=== PATIENT | female | born 1945 | race Caucasian/White ===

== ENCOUNTER 2018-11-20 17:44 | Emergency (ER) | payer MEDICARE ==
--- NOTE | 2018-11-20 18:25 | Emergency Department Record ---
History of Present Illness - General Chief Complaint: Palpitations Stated Complaint: RACING HEART RATE Time Seen by Provider: 11/20/18 18:19 Source: Patient Mode of Arrival: Wheelchair - History of Present Illness Initial Comments: The patient is here because of a racing heart which began around 5 p.m. today, but also has been doing this on and off for the past few days. She wasjust discharged from [facility] on 11-11-18 and is finishing her last 2 doses of vantin , has finished her zithromax, and is finishing her prednisone taper dose in the morning MD Complaint: "Heart racing" Onset/Timin -: Week(s) Context: Occurred during rest Arrythmia History: Atrial fibrillation Associated Symptoms: Other Treatments Prior to Arrival: Beta-jana - Related Data Home Medications Medication Instructions Recorded Confirmed Last Taken Amlodipine Besylate [Norvasc] 5 mg PO DAILY 11/20/18 11/20/18 Unknown Apixaban [Eliquis] 5 mg PO BID 11/20/18 11/20/18 Unknown Aspirin 81 mg PO DAILY 11/20/18 11/20/18 Unknown Fluticasone Propionate [Flovent 50 mcg IH DAILY 11/20/18 11/20/18 Unknown Diskus] Fluticasone/Salmeterol [Advair Hfa 1 puff IH DAILY 11/20/18 11/20/18 Unknown 115-21 Mcg Inhaler] Furosemide 40 mg PO DAILY 11/20/18 11/20/18 Unknown Losartan Potassium 50 mg PO DAILY 11/20/18 11/20/18 Unknown Metformin HCl 1,000 mg PO BID 11/20/18 11/20/18 Unknown Metoprolol Succinate 100 mg PO DAILY 11/20/18 11/20/18 Unknown Montelukast Sodium [Singulair] 10 mg PO QHS 11/20/18 11/20/18 Unknown Pregabalin [Lyrica] 150 g PO DAILY 11/20/18 11/20/18 Unknown Tiotropium [place] [Spiriva 4 mg IH DAILY 11/20/18 11/20/18 Unknown Respimat] Allergies Allergy/AdvReac Type Severity Reaction Status Date / Time No Known Drug Allergies Allergy Verified 11/20/18 18:06 Travel Screening - Travel/Exposure Within Last 30 Days Have you traveled within the last 30 days?: No Past Medical History - SOCIAL HISTORY Smoking Status: Former smoker Alcohol Use: None Drug Use: None - RESPIRATORY Hx Respiratory Disorders: Yes Hx COPD: Yes - CARDIOVASCULAR Hx Cardio Disorders: Yes Hx Abnormal EKG: Yes Hx Irregular Heartbeat: Yes - NEURO Hx Neuro Disorders: Yes Hx TIA: Yes () - GI Hx GI Disorders: No - Hx Genitourinary Disorders: No - ENDOCRINE Hx Endocrine Disorders: Yes Hx Diabetes: Yes Hx Thyroid Disease: No - MUSCULOSKELETAL Hx Musculoskeletal Disorders: No - PSYCH Hx Psych Problems: No - HEMATOLOGY/ONCOLOGY Hx Hematology/Oncology Disorders: Yes Hx Cancer: Yes (melanoma) Hx Chemotherapy: No Hx Radiation Therapy: No Family Medical History Any Significant Family History?: No Physical Exam - General General Appearance: Alert, Oriented x3, Cooperative, No acute distress, Other ( patient repeatedly denies chest symptoms or SALVADOR, SOB) - Head Head exam: Normal inspection - Eye Eye exam: Normal appearance, PERRL Pupils: Normal accommodation - ENT ENT exam: Normal exam, Mucous membranes moist, Normal external ear exam, Normal orophraynx, TM's normal bilaterally Ear exam: Normal external inspection. negative: External canal tenderness Nasal Exam: Normal inspection. negative: Discharge, Sinus tenderness Mouth exam: Normal external inspection, Tongue normal Teeth exam: Normal inspection. negative: Dental caries Throat exam: Normal inspection. negative: Tonsillar erythema, Tonsillar exudate - Neck Neck exam: Normal inspection, Full ROM. negative: Tenderness - Respiratory Respiratory exam: Normal lung sounds bilaterally. negative: Respiratory distress - Cardiovascular Cardiovascular Exam: Normal rhythm, Normal heart sounds, Tachycardia - GI/Abdominal GI/Abdominal exam: Soft, Normal bowel sounds. negative: Tenderness - Rectal Rectal exam: Deferred - exam: Deferred - Extremities Extremities exam: Normal inspection, Full ROM, Normal capillary refill. negative: Calf tenderness, Pedal edema, Tenderness - Back Back exam: Reports: Normal inspection, Full ROM. Denies: Muscle spasm, Rash noted, Tenderness - Neurological Neurological exam: Alert, CN II-XII intact, Normal gait, Oriented X3, Reflexes normal. negative: Motor sensory deficit - Psychiatric Psychiatric exam: Normal affect, Normal mood - Skin Skin exam: Dry, Intact, Normal color, Warm Course Vital Signs 11/20/18 17:58 Temperature 98.2 F Pulse Rate 142 H Respiratory 14 Rate Blood Pressure 124/81 Pulse Ox 94 L - Reevaluation(s) Reevaluation #1: Patient converted to a flutter rate of 75, with changes anterior and inferior leads. Blood pressure now 98 systolic, patient is feeling better. 11/20/18 19:48 Reevaluation #2: Discussed with [facility] call Dr. Landaverde who accepts patient in transfer. she is already anticoagulated on Eliquis previously. Elevated d dimer noted but renal function prohibits contrast CTA. Dr. Jones cardiology will be consulting. 11/20/18 19:49 Reevaluation #3: 11/20/18 19:53 Patient returned to her T at 140. She continues to not have symptoms of any kind, sitting upright in bed swinging feet off the side of cart, conversive, alert. Medical Decision Making - Management Options MDM Management: Additional Work-up Planned (e.g. ADM/Transfer/OP Study) ( Transfer to [facility]) - Data Complexity MDM Data: Labs Ordered and/or Reviewed, X-Ray Ordered and/or Reviewed (Portable chest: slightly rotated but lung maier clear, slight cardiomegally.), EKG Ordered and/or Reviewed - Lab Data Result diagrams: 11/20/18 17:56 11/20/18 17:56 - EKG Data -: EKG Interpreted by Me (Sinus tachycardia of 141, prolonged QT.) Disposition Forms: Patient Portal Access Quality - Quality Measures Quality Measures: N/A - Blood Pressure Screening Does Patient Have Any of the Following: No Blood Pressure Classification: Pre-Hypertensive BP Reading Systolic Measurement: 124 Diastolic Measurement: 81 Screening for High Blood Pressure: < Normal BP, F/U Not Required > [G8783]
[2018-11-20 18:32] LABS: HEMOGLOBIN 12.8 gm/dl (11.6-16.0); MEAN CELL VOLUME 85.1 fl (81-97); MEAN CORPUSCULAR HEMOGLOBIN 26.6 pg (27-33); MEAN CORPUSCULAR HGB CONC 31.2 g/dl (32-36); MEAN PLATELET VOLUME 10.9 fl (7.4-10.4); PLATELET COUNT 395 K/uL (130-400); RED BLOOD COUNT 4.82 M/uL (3.80-5.40); RED CELL DISTRIBUTION WIDTH 16.5 % (11.5-14.5); WHITE BLOOD COUNT W/O DIFF 13.5 K/uL (4.2-12.2)
[2018-11-20 18:38] LABS: PLATELET ESTIMATE NORMAL (NORMAL)
[2018-11-20 18:42] LABS: BILIRUBIN,TOTAL 0.2 mg/dL (0.2-1.0); CREATININE 1.7 mg/dL (0.5-0.9); TOTAL PROTEIN 7.1 g/dL (6.6-8.7)
[2018-11-20] MEDS: DILTIAZEM 25MG/5ML VIAL IV ONE (18:45)
[2018-11-20] MEDS: ASPIRIN 325 MG TABLET PO ONE (18:45)
[2018-11-20] MEDS: 0.9 % SODIUM CHLORIDE 1,000 ML BAG IV ONE (18:46)
[2018-11-20 18:47] LABS: ALB/GLOB RATIO 1.2 (1.1-1.8); ALBUMIN 3.9 g/dL (4.0-5.0); PARTIAL THROMBOPLASTIN TIME 27.3 SECONDS (24.5-39.1); PROTHROMBIN TIME (PATIENT) 10.2 SECONDS (9.5-12.1)
[2018-11-20] MEDS ORDERED: DILTIAZEM 25MG/5ML VIAL IV ONE (19:30)
[2018-11-20] MEDS: DILTIAZEM HCL 125 MG in 0.9 % SODIUM CHLORIDE 100ML 100 ML IV SCH (20:06)
[2018-11-20 20:30] LABS: URINE APPEARANCE CLEAR; URINE BILIRUBIN NEGATIVE (NEGATIVE); URINE BLOOD NEGATIVE (NEGATIVE); URINE COLOR YELLOW; URINE KETONE NEGATIVE (NEGATIVE); URINE LEUKOCYTE ESTERASE TRACE (NEGATIVE); URINE NITRITE NEGATIVE (NEGATIVE); URINE PROTEIN NEGATIVE (NEGATIVE); URINE UROBILINOGEN 0.2 E.U./dL (0.20 - 1.00)
[2018-11-20 20:32] LABS: URINE GLUCOSE (UA) >=1000 mg/dL (NEGATIVE)
[2018-11-20 20:38] LABS: URINE BACTERIA FEW; URINE EPITHELIAL CELLS 0 - 2 (FEW); URINE RBC 0 - 2 (NONE SEEN); URINE WBC 0 - 2 (0-2/hpf)
--- NOTE | 2018-11-20 21:20 | RADIOLOGY REPORT ---
EXAM: CHEST 1 VIEW HISTORY: TACHYCARDIA, ELEVATED TROPONIN. TECHNIQUE: Portable chest. FINDINGS: Previous median sternotomy and CABG. There is mild cardiomegaly. No clear pulmonary vascular congestion. No focal consolidation or pleural effusion. IMPRESSION: MILD ENLARGEMENT OF THE CARDIOMEDIASTINAL SILHOUETTE. JOB NUMBER: [id number] MTDD
== END 2018-11-20 20:33 | disposition short-term general hospital (02) ==
LOC: ER 17:44
DX: I47.1 Supraventricular tachycardia (principal); R79.89 Other specified abnormal findings of blood chemistry; E11.9 Type 2 diabetes mellitus without complications; J44.9 Chronic obstructive pulmonary disease, unspecified; Z79.84 Long term (current) use of oral hypoglycemic drugs; Z87.891 Personal history of nicotine dependence; Z79.01 Long term (current) use of anticoagulants; Z86.73 Personal history of transient ischemic attack (TIA), and cerebral infarction without residual deficits
CPT/HCPCS: 71045; 80053; 81001; 83605; 83880; 84484; 85027; 85379; 85610; 85730; 93005; 93010; 96365; 96375; 99285

== ENCOUNTER 2019-02-01 20:25 | Inpatient (IN) | payer MEDICARE ==
[2019-02-01] MEDS ORDERED: IPRATROPIUM/ALBUTEROL (0.5MG/3MG) NEB INH ONE (20:29)
--- NOTE | 2019-02-01 20:34 | Emergency Department Record ---
History of Present Illness - General Chief Complaint: Shortness of breath Stated Complaint: SOB Time Seen by Provider: 02/01/19 20:29 Source: Patient Mode of Arrival: Wheelchair Limitations: No limitations - History of Present Illness Initial Comments: 73 yo female presents to ED for evaluation of SALVADOR and a "rattlely cough for 2 weeks". Patient reports a history of COPD, has been using her inhaler at home. Patient reports similar symptoms with pneumonia in October. Patient also reports that she is 2 weeks post-op from knee surgery, denies chest pain or discomfort symptoms, denies calf swelling or pain, and denies history of DVT/PE. MD Complaint: Shortness of breath Onset/Timin -: Week(s) Consistency: Constant Improves With: Bronchodilators Worsens With: Exertion Known History Of: COPD, Recurrent pneumonia Associated Symptoms: Denies other symptoms Treatments Prior to Arrival: Bronchodilator - Related Data Home Oxygen Therapy: No Allergies Allergy/AdvReac Type Severity Reaction Status Date / Time No Known Drug Allergies Allergy Verified 11/20/18 18:06 Review of Systems Constitutional: Denies: Chills, Fever, Malaise, Night sweats Eyes: Denies: Eye discharge, Eye pain ENT: Denies: Congestion, Ear pain, Epistaxis Respiratory: Reports: Cough, Dyspnea, Wheezes Cardiovascular: Reports: Dyspnea on exertion. Denies: Chest pain Endocrine: Denies: Fatigue, Heat or cold intolerance Gastrointestinal: Denies: Abdominal pain, Nausea, Vomiting Genitourinary: Denies: Incontinence, Retention Musculoskeletal: Denies: Arthralgia, Back pain Skin: Denies: Bruising, Change in color Neurological: Denies: Abnormal gait, Confusion, Headache, Seizure Psychiatric: Denies: Anxiety Hematological/Lymphatic: Denies: Anemia, Blood Clots Past Medical History - SOCIAL HISTORY Smoking Status: Former smoker Drug Use: None - RESPIRATORY Hx Respiratory Disorders: Yes Hx COPD: Yes - CARDIOVASCULAR Hx Cardio Disorders: Yes Hx Abnormal EKG: Yes Hx Irregular Heartbeat: Yes - NEURO Hx Neuro Disorders: Yes Hx TIA: Yes () - GI Hx GI Disorders: No - Hx Genitourinary Disorders: No - ENDOCRINE Hx Endocrine Disorders: Yes Hx Diabetes: Yes Hx Thyroid Disease: No - MUSCULOSKELETAL Hx Musculoskeletal Disorders: No - PSYCH Hx Psych Problems: No - HEMATOLOGY/ONCOLOGY Hx Hematology/Oncology Disorders: Yes Hx Cancer: Yes (melanoma) Hx Chemotherapy: No Hx Radiation Therapy: No Physical Exam - General General Appearance: Alert, Oriented x3, Cooperative, Moderate distress, Other ( Pursed breathing on examination, tachypnic, hypoxic on examination) Limitations: No limitations - Head Head exam: Atraumatic, Normocephalic, Normal inspection Head exam detail: negative: Abrasion, Contusion, Drew's sign, General tenderness, Hematoma, Laceration - Eye Eye exam: Normal appearance. negative: Conjunctival injection, Periorbital swelling, Periorbital tenderness, Scleral icterus - ENT Ear exam: negative: Auricular hematoma, Auricular trauma Nasal Exam: negative: Active bleeding, Discharge, Dried blood, Foreign body Mouth exam: negative: Drooling, Laceration, Muffled voice, Tongue elevation - Neck Neck exam: Normal inspection. negative: Meningismus, Tenderness - Respiratory Respiratory exam: Respiratory distress, Other (Crackles RUL, RLL on examination. ). negative: Rales, Rhonchi - Cardiovascular Cardiovascular Exam: Regular rate, Normal rhythm, Normal heart sounds - GI/Abdominal GI/Abdominal exam: Soft. negative: Rebound, Rigid, Tenderness - Rectal Rectal exam: Deferred - exam: Deferred - Extremities Extremities exam: Normal inspection. negative: Pedal edema, Tenderness - Back Back exam: Denies: CVA tenderness (R), CVA tenderness (L) - Neurological Neurological exam: Alert, Oriented X3. negative: Motor sensory deficit - Psychiatric Psychiatric exam: Normal affect, Normal mood - Skin Skin exam: Normal color. negative: Abrasion Type of lesion: negative: abrasion Course - Reevaluation(s) Reevaluation #1: 02/01/19 20:37 EKG: NSR 93 Normal axis, normal intervals Borderline ST depression I, AVL, V4-V6 Reevaluation #2: 02/01/19 21:02 Laboratory studies were reviewed: WBC 23.3 Hgb 10.5/HCT 34 GFR 36 (at baseline for the patient) Troponin 0.012 (slightly above 0.010 cutoff). Patient was taken for CXR at this time. Reevaluation #3: 02/01/19 21:10 CXR was reviewed: Appears c/w RML infiltrate Zosyn and Levaquin was ordered for HCAP, will admit for further evaluation. Given the patient's symptoms, elevated WBC, and examination, etiology appears c/ w HCAP. CTA to exclude PE does not appear appropriate given these factors and the patient's GFR. Patient verbalizes understanding and is agreement with the plan of care to treat for HCAP and not perform CTA. Will admit for further evaluation and treatment. Reevaluation #4: 02/01/19 21:18 Case was discussed with Fanta Bettencourt [employer], will accept admission and is in agreement with not pursuing PE/DVT given the patient's CXR, elevated WBC, and clinical examination. Will admit for treatment of HCAP as discussed. Medical Decision Making - Lab Data Result diagrams: 02/01/19 20:30 02/01/19 20:30 Disposition Disposition: Admit Clinical Impression: HCAP (healthcare-associated pneumonia), Hypoxia COPD (chronic obstructive pulmonary disease) Qualifiers: COPD type: unspecified COPD Qualified Code(s): J44.9 - Chronic obstructive pulmonary disease, unspecified Disposition: Still a Patient at [facility] Decision to Admit: Admit from ER Decision to Admit Date: 02/01/19 Decision to Admit Time: 21:13 Condition: (2) Stable Forms: Patient Portal Access Time of Disposition: 21:13 Quality - Quality Measures Quality Measures: N/A - Blood Pressure Screening Does Patient Have Any of the Following: Active Dx of HTN Blood Pressure Classification: Hypertensive Reading Systolic Measurement: 159 Diastolic Measurement: 70 Screening for High Blood Pressure: Patient Exclusion, Hx of HTN [G9744]
[2019-02-01 20:40] LABS: BASO % 0.1 % (0-6); EOS % 0.3 % (0-6); HEMATOCRIT 34.5 % (35.0-47.0); HEMOGLOBIN 10.5 gm/dl (11.6-16.0); MEAN CELL VOLUME 86.5 fl (81-97); MEAN CORPUSCULAR HEMOGLOBIN 26.3 pg (27-33); MEAN CORPUSCULAR HGB CONC 30.4 g/dl (32-36); MEAN PLATELET VOLUME 9.8 fl (7.4-10.4); MONO % 6.1 % (0-9); PLATELET COUNT 317 K/uL (130-400); RED BLOOD COUNT 3.99 M/uL (3.80-5.40)
[2019-02-01 20:48] LABS: WHITE BLOOD COUNT W/O DIFF 23.3 K/uL (4.2-12.2)
[2019-02-01 20:50] LABS: BILIRUBIN,TOTAL 0.4 mg/dL (0.2-1.0); CREATININE 1.5 mg/dL (0.5-0.9)
[2019-02-01 20:51] LABS: TOTAL PROTEIN 7.4 g/dL (6.6-8.7)
[2019-02-01 20:56] LABS: ALBUMIN 3.7 g/dL (4.0-5.0)
[2019-02-01 21:05] LABS: ANISOCYTOSIS 1+; PLATELET ESTIMATE NORMAL (NORMAL)
[2019-02-01] MEDS ORDERED: PIPERACILLIN SODIUM/TAZOBACTAM 4.5 GM in 0.9 % SODIUM CHLORIDE 100ML 100 ML IVPB ONE (21:09)
[2019-02-01] MEDS ORDERED: LEVOFLOXACIN 250MG IVPB 250 MG/50 ML BAG IVPB ONE (21:09)
[2019-02-01] MEDS ORDERED: LEVOFLOXACIN/D5W 750 MG/150 ML BAG IVPB SCH (23:13)
[2019-02-01] MEDS ORDERED: PIPERACILLIN SODIUM/TAZOBACTAM 4.5 GM in 0.9 % SODIUM CHLORIDE 100ML 100 ML IVPB SCH (23:13)
[2019-02-01] MEDS ORDERED: 0.9 % SODIUM CHLORIDE 1000ML 1,000 ML IV PRN (23:13)
[2019-02-01] MEDS ORDERED: ALBUTEROL SULFATE (0.083%) 2.5 MG/3 ML NEB INH PRN (23:13)
[2019-02-01] MEDS ORDERED: Non-Formulary MISC (Metformin Hcl [Metformin Hcl] 1,000 MG) PO SCH (23:13)
[2019-02-01] MEDS: IPRATROPIUM/ALBUTEROL (0.5MG/3MG) NEB INH SCH (23:35)
[2019-02-01] MEDS: ACETAMINOPHEN 500 MG TABLET PO PRN (23:49)
[2019-02-01] MEDS: MONTELUKAST SODIUM 10MG TABLET PO SCH (23:50)
[2019-02-01] MEDS: APIXABAN 5MG TABLET PO SCH (23:50)
[2019-02-02] MEDS: PREGABALIN 50 MG CAPSULE PO SCH ×3 (00:53→21:31)
[2019-02-02] MEDS ORDERED: LEVOFLOXACIN 500MG IVPB 500 MG/100 ML BAG IVPB SCH (02:00)
[2019-02-02] MEDS: PIPERACILLIN SODIUM/TAZOBACTAM 3.375 GM in 0.9 % SODIUM CHLORIDE 100ML 100 ML IVPB SCH ×4 (04:25→21:16)
[2019-02-02] MEDS: IPRATROPIUM/ALBUTEROL (0.5MG/3MG) NEB INH SCH ×2 (06:16→09:46)
--- NOTE | 2019-02-02 07:32 | RADIOLOGY REPORT ---
EXAM: CHEST, TWO VIEWS HISTORY: DIFFICULTY IN BREATHING, SHORTNESS OF BREATH FOR TWO WEEKS, PRODUCTIVE COUGH. TECHNIQUE: PA and lateral views of the chest were obtained. Comparison: Portable AP chest 11/20/18. FINDINGS: Postop sternotomy as before. Stable cardiomegaly, however, there is new infiltrate in the right mid lung predominantly in the inferior aspect of the right upper lobe, but also in the adjacent right middle lobe. There is also a small amount of new infiltrate in the left mid lung laterally. This likely represents bilateral pneumonitis, right greater than left. Follow-up films suggested to demonstrate clearing. Slight blunting of the posterior costophrenic angles probably representing quite small basilar effusions bilaterally. No pneumothorax evident. IMPRESSION: 1. CARDIOMEGALY WITH POSTOP STERNOTOMY BEFORE. 2. NEW BILATERAL PULMONARY INFILTRATE RIGHT GREATER THAN LEFT PROBABLY REPRESENTING BILATERAL PNEUMONITIS. THERE MAY BE SMALL ASSOCIATED BIBASILAR EFFUSIONS WELL. FOLLOW-UP FILMS SUGGESTED TO DEMONSTRATE CLEARING. J[facility] NUMBER: [id number] [facility]
[2019-02-02] MEDS: ACETAMINOPHEN 500 MG TABLET PO PRN (07:39)
[2019-02-02] MEDS ORDERED: METFORMIN 500 MG TABLET PO SCH ×2 (08:00→10:00)
[2019-02-02] MEDS ORDERED: 0.9 % SODIUM CHLORIDE 1000ML 1,000 ML IV PRN ×2 (08:10→16:52)
[2019-02-02] MEDS: LEVEMIR FLEXTOUCH 100 UNIT/ML INSULIN PEN SQ SCH ×2 (08:25→09:33)
[2019-02-02 08:29] LABS: HEMATOCRIT 30.5 % (35.0-47.0); HEMOGLOBIN 9.4 gm/dl (11.6-16.0); MEAN CELL VOLUME 87.4 fl (81-97); MEAN CORPUSCULAR HEMOGLOBIN 26.9 pg (27-33); MEAN CORPUSCULAR HGB CONC 30.8 g/dl (32-36); MEAN PLATELET VOLUME 9.9 fl (7.4-10.4); PLATELET COUNT 270 K/uL (130-400); RED BLOOD COUNT 3.49 M/uL (3.80-5.40)
[2019-02-02 09:10] LABS: BILIRUBIN,TOTAL 0.6 mg/dL (0.2-1.0); CREATININE 1.6 mg/dL (0.5-0.9)
[2019-02-02 09:11] LABS: TOTAL PROTEIN 6.6 g/dL (6.6-8.7)
[2019-02-02 09:15] LABS: ALB/GLOB RATIO 0.9 (1.1-1.8); ALBUMIN 3.1 g/dL (4.0-5.0)
[2019-02-02] MEDS: FUROSEMIDE 40 MG TABLET PO SCH (09:32)
[2019-02-02] MEDS: METOPROLOL SUCC 50 MG TABLET PO SCH (09:32)
[2019-02-02] MEDS: ASPIRIN 81 MG CHEWABLE TABLET PO SCH (09:32)
[2019-02-02] MEDS: APIXABAN 5MG TABLET PO SCH ×2 (09:32→21:32)
[2019-02-02] MEDS: BREO (FLUTICASONE/VILANTEROL) 200MCG/25MCG INHALER INH SCH (09:46)
[2019-02-02] MEDS: PATIENT OWN MED: SPIRIVA RESPIMAT INH SCH (09:46)
[2019-02-02] MEDS: AMIODARONE HCL 200 MG TABLET PO SCH (12:55)
[2019-02-02] MEDS: FLUTICASONE PROPIONATE 50MCG NASAL 16 GM BTL SCH ×2 (12:55→23:20)
--- NOTE | 2019-02-02 16:51 | History & Physical ---
History of Present Illness - Date of Service Date of Service for History & Physical: 02/02/19 - History of Present Illness Admitting Diagnosis: HCAP. Hypoxia. COPD History of Present Illness: Marii Landry is a 73 y.o. F who presented to the [facility] ED for SALVADOR and a "rattley cough x 2 weeks". Had similar symptoms in October and was treated for PNA. Has inhalers at home d/t COPD and has been using. Did undergo a left knee surgery at [facility] 2 weeks ago. Has been anticoagulated with Eliquis and denied calf swelling, leg pain, chest pain or hx of DVT/PE. While in the ED, Dr. Chacon and pt discussed low likelihood of PE and higher likelihood of PNA causing increased SALVADOR. Additionally, d/t Stage 4 CKD and pt not wanting to transfer to higher level of care to r/o PE, it was agreed upon that pt would remain at [facility] and be treated for clinical s/sx of HCAP. PMHx: COPD, CKD 4, DM II, heart disease ED Course O2 sat 72% on arrival EKG: NSR, rate 93, borderline ST depression I, AVL, V4-V6 Labs: WBC 23.3, Hgb/HCT 10.5/34, GFR 36 (baseline) CXR: New bilateral infiltrates, right side greater than left, maybe small bibasilar effusion 02/02/19 1515: Sitting up in chair, conversing with ease. Alert and appropriate. Reports that she feels much less SOB than the previous evening. Only having pain in left knee d/t recent knee surgery. States that her baseline O2 sat is 89-92% on RA. Does not have home oxygen. Currently is wearing 3L per NC and O2 sat is 93% at rest. Has only had to use nebulizer once. Doesn't feel like she has anything to hack up. Cough has improved. Reports that her "Metformin is always stopped when in the hospital d/t my kidney function." States that she has been in CKD 4 x 4-5 years and that GFR stays stable, even with Metformin use. Concerned about falling behind with progress on her left knee d/t recent surgery. Motivated to get up and move when able to breathe. Travel Screening - Travel/Exposure Within Last 30 Days Have you traveled within the last 30 days?: No - Travel/Exposure Within Last Year Have you traveled outside the [place] in the last year?: No - Additonal Travel Details Have you been exposed to anyone with a communicable illness?: No - Travel Symptoms Symptom Screening: Weakness, Fatigue, Lack of Appetite Review of Systems Reviewed: No additional complaints except as noted below Constitutional: Denies: Chills, Fever, Malaise, Night sweats Eyes: Denies: Eye discharge, Eye pain ENT: Denies: Congestion, Ear pain, Epistaxis Respiratory: Reports: Cough, Dyspnea, Wheezes Cardiovascular: Reports: Dyspnea on exertion. Denies: Chest pain, Edema Endocrine: Denies: Fatigue, Heat or cold intolerance Gastrointestinal: Denies: Abdominal pain, Nausea, Vomiting Genitourinary: Denies: Incontinence, Retention Musculoskeletal: Denies: Arthralgia, Back pain Skin: Denies: Bruising, Change in color Neurological: Denies: Abnormal gait, Confusion, Headache, Seizure Psychiatric: Denies: Anxiety Hematological/Lymphatic: Denies: Anemia, Blood Clots Past Medical History - SOCIAL HISTORY Smoking Status: Former smoker Alcohol Use: None - RESPIRATORY Hx Respiratory Disorders: Yes Hx COPD: Yes Hx Sleep Apnea: Yes Hx of CPAP: Yes (USES CPAP AT HOME) - CARDIOVASCULAR Hx Cardio Disorders: Yes Hx Abnormal EKG: Yes Hx Irregular Heartbeat: Yes (ON AMIODARONE) - NEURO Hx Neuro Disorders: Yes Hx TIA: Yes () - GI Hx GI Disorders: No - Hx Genitourinary Disorders: No - ENDOCRINE Hx Endocrine Disorders: Yes Hx Diabetes: Yes (INSULIN DEPENDENT) Hx Thyroid Disease: No - MUSCULOSKELETAL Hx Musculoskeletal Disorders: Yes Hx Arthritis: Yes - PSYCH Hx Psych Problems: No - HEMATOLOGY/ONCOLOGY Hx Hematology/Oncology Disorders: Yes Hx Cancer: Yes (melanoma) Hx Chemotherapy: No Hx Radiation Therapy: No Family Medical History Any Significant Family History?: Yes Hx Heart Disease: Father Hx HTN: Father H&P Meds/Allergies - Allergies Allergies: Allergies Allergy/AdvReac Type Severity Reaction Status Date / Time No Known Drug Allergies Allergy Verified 11/20/18 18:06 - Home Medications Home Medications Medication Instructions Recorded Confirmed Last Taken Acetaminophen [Tylenol Extra 500 mg PO BID PRN 02/01/19 02/01/19 Unknown Strength] Insulin Glargine,Hum.rec.anlog 55 units SQ QAM 03/02/01/19 02/01/19 07:00 [Lantus Solostar] 55 UNITS Amiodarone HCl [Pacerone] 200 mg PO QAM 02/02/19 02/02/19 02/01/19 07:00 200 MG Lovastatin 40 mg PO QHS 02/02/19 02/02/19 01/31/19 23:30 40 MG - Active Medications Active Medications: Current Medications Acetaminophen (Tylenol 500mg Tab) 1,000 mg PO Q6H PRN PRN Reason: PAIN - MILD(1-4)/FEVER Last Admin: 02/02/19 07:39 Dose: 1,000 mg Albuterol Sulfate (Albuterol Sulfate) 2.5 mg INH RESP.Q1H PRN PRN Reason: DIFFICULTY IN BREATHING Amiodarone HCl (Pacerone) 200 mg PO DAILY [facility] Last Admin: 02/02/19 12:55 Dose: 200 mg Apixaban (Eliquis) 5 mg PO BID [facility] Last Admin: 02/02/19 09:32 Dose: 5 mg Aspirin (Aspirin Chewable) 81 mg PO DAILY [facility] Last Admin: 02/02/19 09:32 Dose: 81 mg Fluticasone Propionate (Flonase) 1 spray NA DAILY [facility] Last Admin: 02/02/19 12:55 Dose: Not Given Furosemide (Lasix) 40 mg PO DAILY [facility] Last Admin: 02/02/19 09:32 Dose: 40 mg Piperacillin Sod/Tazobactam (Sod 3.375 gm/ Sodium Chloride) 100 mls @ 200 mls/ hr IVPB Q6H [facility] Last Infusion: 02/02/19 16:08 Dose: Infused Levofloxacin/Dextrose (Levaquin 750mg Ivpb) 750 mg in 150 mls @ 125 mls/hr IVPB Q48H [facility] Stop: 02/09/19 01:01 Sodium Chloride () 1,000 mls @ 42 mls/hr IV .[id number] PRN PRN Reason: LARGE VOLUME IV Insulin Detemir (Levemir Flextouch) 55 unit SQ QAM [facility] Last Admin: 02/02/19 09:33 Dose: Not Given Metformin HCl (Glucophage Ir) 1,000 mg PO BID [facility] Last Admin: 02/02/19 11:07 Dose: Not Given Metoprolol Succinate (Toprol Xl) 100 mg PO DAILY [facility] Last Admin: 02/02/19 09:32 Dose: 100 mg Montelukast Sodium (Singulair) 10 mg PO QHS [facility] Last Admin: 02/01/19 23:50 Dose: 10 mg Patient Own Med: (Spiriva Respimat) 2 each INH DAILY [facility] Last Admin: 02/02/19 09:46 Dose: 2 each Pregabalin (Lyrica) 150 mg PO BID [facility] Last Admin: 02/02/19 09:31 Dose: 150 mg Simvastatin (Zocor) 20 mg PO QHS [facility] Physical Exam - Vital Signs Vital Signs: Vital Signs - Last 24 Hrs Temp Pulse Pulse Pulse Resp BP BP 02/02/19 16:00 99.0 F 79 16 184/65 02/02/19 11:53 97.5 F L 73 16 128/48 02/02/19 09:56 02/02/19 09:54 82 18 02/02/19 08:00 97.3 F L 96 H 16 130/49 02/02/19 06:15 02/02/19 05:00 97.7 F 68 20 111/43 02/01/19 23:35 02/01/19 23:15 98.6 F 88 20 153/61 02/01/19 22:56 16 142/59 02/01/19 21:40 94 H 18 138/50 02/01/19 20:41 89 18 02/01/19 20:27 98.7 F 93 H 20 159/70 Pulse Ox 02/02/19 16:00 96 02/02/19 11:53 93 L 02/02/19 09:56 92 L 02/02/19 09:54 92 L 02/02/19 08:00 91 L 02/02/19 06:15 98 02/02/19 05:00 91 L 02/01/19 23:35 94 L 02/01/19 23:15 93 L 02/01/19 22:56 95 02/01/19 21:40 95 02/01/19 20:41 96 02/01/19 20:27 91 L - General General Appearance: Alert, Oriented x3, Cooperative, No acute distress, Other ( able to communicate in multiple word sentences with ease) Limitations: No limitations - Head Head exam: Atraumatic, Normocephalic, Normal inspection Head exam detail: negative: Abrasion, Contusion, Drew's sign, General tenderness, Hematoma, Laceration - Eye Eye exam: Normal appearance. negative: Conjunctival injection, Periorbital swelling, Periorbital tenderness, Scleral icterus - ENT Ear exam: negative: Auricular hematoma, Auricular trauma Nasal Exam: negative: Active bleeding, Discharge, Dried blood, Foreign body Mouth exam: negative: Drooling, Laceration, Muffled voice, Tongue elevation - Neck Neck exam: Normal inspection. negative: Meningismus, Tenderness - Respiratory Respiratory exam: Decreased breath sounds. negative: Rales, Rhonchi - Cardiovascular Cardiovascular Exam: Regular rate, Normal rhythm, Normal heart sounds - GI/Abdominal GI/Abdominal exam: Soft. negative: Rebound, Rigid, Tenderness - Rectal Rectal exam: Deferred - exam: Deferred - Extremities Extremities exam: Normal inspection, Pedal edema (left side which is surgical leg). negative: Tenderness - Back Back exam: Denies: CVA tenderness (R), CVA tenderness (L) - Neurological Neurological exam: Alert, Oriented X3. negative: Motor sensory deficit - Psychiatric Psychiatric exam: Normal affect, Normal mood - Skin Skin exam: Normal color, Other (left knee incision well-approximated, no s/sx of infection). negative: Abrasion Type of lesion: negative: abrasion Results - Labs Result Diagrams: 02/02/19 08:25 02/02/19 08:22 Labs Last 24 Hours: Laboratory Results - last 24 hr 02/01/19 02/01/19 02/02/19 20:30 20:30 08:22 WBC 23.3 H* Corrected WBC RBC 3.99 Hgb 10.5 L Hct 34.5 L MCV 86.5 MCH 26.3 L MCHC 30.4 L RDW 15.0 H Plt Count 317 MPV 9.8 Gran % Neutrophils % 85.0 H Band Neutrophils % 3.0 Lymphocytes % 4.0 L Monocytes % 6.1 Eosinophils % 0.3 Basophils % 0.1 Lymphocytes 6.0 L Monocytes 5.0 Basophils Metamyelocytes Myelocytes Promyelocytes Nucleated RBCs Differential Comment Hypersegmented Polys Plasma Cells Other Cell Type Toxic Granulation Dohle Bodies Justina Rods Platelet Estimate Normal RBC Morphology Polychromasia Hypochromasia Poikilocytosis Basophilic Stippling Anisocytosis 1+ Microcytosis Macrocytosis Spherocytes Sickle Cells Target Cells Tear Drop Cells Ovalocytes Stomatocytes Helmet Cells Martinez-S[place] Bodies [place] Rings Zak Cells Acanthocytes (Spur) Rouleaux Schistocytes Morphology Comment Eosinophil Count 1.0 Sodium 138 137 Potassium 4.8 H 4.7 H Chloride 99 100 Carbon Dioxide 25.0 25.0 Anion Gap 14.0 12.0 BUN 29 H 27 H Creatinine 1.5 H 1.6 H Estimated GFR 36 33 POC Glucose Random Glucose 140 H 114 H Calcium 9.1 8.8 Total Bilirubin 0.40 0.60 AST 16 13 ALT 13 12 Alkaline Phosphatase 132 H 111 H Troponin T 0.012 H Total Protein 7.4 6.6 Albumin 3.7 L 3.1 L Globulin 3.7 3.5 Albumin/Globulin Ratio 1.0 L 0.9 L Procalcitonin 0.197 02/02/19 02/02/19 02/02/19 08:25 08:25 11:52 WBC 17.0 H Cancelled Corrected WBC Cancelled RBC 3.49 L Cancelled Hgb 9.4 L Cancelled Hct 30.5 L Cancelled MCV 87.4 Cancelled MCH 26.9 L Cancelled MCHC 30.8 L Cancelled RDW 15.0 H Cancelled Plt Count 270 Cancelled MPV 9.9 Cancelled Gran % Cancelled Neutrophils % 91.0 H Cancelled Band Neutrophils % Cancelled Lymphocytes % Cancelled Monocytes % Cancelled Eosinophils % Not Reportable Cancelled Basophils % Not Reportable Cancelled Lymphocytes 6.0 L Cancelled Monocytes 2.0 Cancelled Basophils Cancelled Metamyelocytes Cancelled Myelocytes Cancelled Promyelocytes Cancelled Nucleated RBCs Cancelled Differential Comment Cancelled Hypersegmented Polys Cancelled Plasma Cells Cancelled Other Cell Type Cancelled Toxic Granulation Cancelled Dohle Bodies Cancelled Justina Rods Cancelled Platelet Estimate Cancelled RBC Morphology Cancelled Polychromasia Cancelled Hypochromasia Cancelled Poikilocytosis Cancelled Basophilic Stippling Cancelled Anisocytosis Cancelled Microcytosis Cancelled Macrocytosis Cancelled Spherocytes Cancelled Sickle Cells Cancelled Target Cells Cancelled Tear Drop Cells Cancelled Ovalocytes Cancelled Stomatocytes Cancelled Helmet Cells Cancelled Martinez-S[place]omb Bodies Cancelled [place] Rings Cancelled [place] Cells Cancelled Acanthocytes (Spur) Cancelled Rouleaux Cancelled Schistocytes Cancelled Morphology Comment Cancelled Eosinophil Count Cancelled Sodium Potassium Chloride Carbon Dioxide Anion Gap BUN Creatinine Estimated GFR POC Glucose 113 H Random Glucose Calcium Total Bilirubin AST ALT Alkaline Phosphatase Troponin T Total Protein Albumin Globulin Albumin/Globulin Ratio Procalcitonin VTE H&P Assessment - Risk for VTE Risk for VTE: Yes Risk Level: High Risk Assessment Date: 02/02/19 Risk Assessment Time: 15:00 VTE Orders Placed or Will Be Placed: Yes Plan - Inpatient Certification Inpatient Certification: Admit to inpatient care: Based on my medical assessment, after consideration of patient's risk factors (age, co-morbidities and patient presenting symptoms and acuity), I expect that this patient will remain in the hospital greater than or equal to two midnights and that the services needed warrant inpatient care because: Patient Risk Factors: [] Estimated length of stay: [] The patient may reasonably be expected to be discharged or transferred to a hospital within 96 hours after admission to [facility]. Services needed: [] Post hospital care (if known): [] I certify that my determination is in accordance with my understanding of Medicare requirements for reasonable and necessary inpatient services. - Detailed Diagnosis and Plan (1) HCAP (healthcare-associated pneumonia) Current Visit: Yes Status: Acute Base Code: J18.9 - PNEUMONIA, UNSPECIFIED ORGANISM Comment: 02/02/19 -CXR: New bilateral infiltrates, R > L, possible small bibasilar effusion -WBC 23.3, decreased to 17 -O2 to maintain sats 90-92% -Continue IV Zosyn and IV Levaquin (with renal dosing) -Albuterol nebs PRN -No steroids given d/t no wheezing and DM II (2) COPD (chronic obstructive pulmonary disease) Current Visit: Yes Status: Acute Qualifiers: COPD type: unspecified COPD Qualified Code(s): J44.9 - Chronic obstructive pulmonary disease, unspecified Base Code: J44.9 - CHRONIC OBSTRUCTIVE PULMONARY DISEASE, UNSPECIFIED Comment : 02/02/19 -Albuterol nebs PRN -Breo Ellipta inhaler -O2 to maintain sats 90-92% (3) Full code status Current Visit: Yes Status: Acute Base Code: Z78.9 - OTHER SPECIFIED HEALTH STATUS Comment: 02/02/19 -Full code this admission (4) DVT (deep venous thrombosis) Current Visit: Yes Status: Acute Base Code: I82.409 - ACUTE EMBOLISM AND THOMBOS UNSP DEEP VN UNSP LOWER EXTREMITY Comment: 02/02/19 -Continue home dose of Eliquis 5mg PO BID -Encourage ambulation (5) Diabetes mellitus, type II, insulin dependent Current Visit: Yes Status: Acute Base Code: E11.9 - TYPE 2 DIABETES MELLITUS WITHOUT COMPLICATIONS; Z79.4 - REPATCHER (CURRENT) USE OF INSULIN Comment: 02/02/19 -Hold Metformin while in hospital d/t other nephrotoxic agents (GFR 33) -Continue Levemir 55 units q. AM (6) Hypoxia Current Visit: Yes Status: Acute Base Code: R09.02 - HYPOXEMIA Comment: -O2 sat 72% RA on arrival to ED -Currently 93% on 3L per NC -Staff to wean off of O2 for discharge -Continue IV atbx for HCAP (recent hospitalization) (7) H/O left knee surgery Current Visit: Yes Status: Acute Base Code: Z98.890 - OTHER SPECIFIED POSTPROCEDURAL STATES Comment: 02/02/19 -S/p left knee surgery approximately 2 weeks ago -Concerned about falling behind on PT/OT d/t hospitalization -Ortho surgeon wrote script for outpatient PT/OT and unable to start until (8) CKD (chronic kidney disease), stage IV Current Visit: Yes Status: Acute Base Code: N18.4 - CHRONIC KIDNEY DISEASE, STAGE 4 (SEVERE) Comment: 02/02/19 -Hold Metformin while hospitalized, recommended discussing stopping this medication with PCP -IV Zosyn and IV Levaquin with renal dosing -IVF reduced to 15ml/hr
[2019-02-02] MEDS ORDERED: POLYETHYLENE GLY 17 GM PACKET PO ONE (16:53)
[2019-02-02] MEDS: MONTELUKAST SODIUM 10MG TABLET PO SCH (21:35)
[2019-02-02] MEDS ORDERED: SIMVASTATIN 20 MG TABLET PO SCH (22:00)
[2019-02-03] MEDS: PIPERACILLIN SODIUM/TAZOBACTAM 3.375 GM in 0.9 % SODIUM CHLORIDE 100ML 100 ML IVPB SCH ×2 (03:50→08:47)
[2019-02-03] MEDS: ACETAMINOPHEN 500 MG TABLET PO PRN (08:35)
[2019-02-03] MEDS: AMIODARONE HCL 200 MG TABLET PO SCH ×2 (08:36→09:16)
[2019-02-03] MEDS: METOPROLOL SUCC 50 MG TABLET PO SCH ×2 (08:36→09:16)
[2019-02-03] MEDS: FUROSEMIDE 40 MG TABLET PO SCH ×2 (08:37→09:15)
[2019-02-03] MEDS: PREGABALIN 50 MG CAPSULE PO SCH ×2 (08:37→09:16)
[2019-02-03] MEDS: ASPIRIN 81 MG CHEWABLE TABLET PO SCH ×2 (08:37→09:15)
[2019-02-03] MEDS: LEVEMIR FLEXTOUCH 100 UNIT/ML INSULIN PEN SQ SCH ×2 (08:38→09:16)
[2019-02-03] MEDS: FLUTICASONE PROPIONATE 50MCG NASAL 16 GM BTL SCH (09:15)
[2019-02-03] MEDS: APIXABAN 5MG TABLET PO SCH (09:15)
[2019-02-03] MEDS: BREO (FLUTICASONE/VILANTEROL) 200MCG/25MCG INHALER INH SCH (10:02)
[2019-02-03] MEDS: PATIENT OWN MED: SPIRIVA RESPIMAT INH SCH (10:03)
--- NOTE | 2019-02-03 11:35 | Discharge Summary ---
Providers Discharge Summary Date: 02/03/19 Date of admission: 02/01/19 22:31 Attending physician: PHILLY URIZ Primary care physician: STEPH ROSALES M.D. Physical Exam - Vital Signs Vital Signs: Vital Signs - Last 24 Hrs Temp Pulse Pulse Resp BP Pulse Ox 02/03/19 10:08 81 18 94 L 02/03/19 09:00 16 02/03/19 08:00 97.9 F 75 17 126/52 92 L 02/03/19 05:00 98.0 F 79 22 122/40 96 02/03/19 04:08 75 20 97 02/03/19 00:00 97.8 F 74 22 131/52 95 02/02/19 22:25 83 95 02/02/19 20:00 98.4 F 87 22 185/59 95 02/02/19 16:00 99.0 F 79 16 184/65 96 02/02/19 11:53 97.5 F L 73 16 128/48 93 L - General General Appearance: Alert, Oriented x3, Cooperative, No acute distress Limitations: No limitations - Head Head exam: Atraumatic, Normocephalic, Normal inspection Head exam detail: negative: Abrasion, Contusion, Drew's sign, General tenderness, Hematoma, Laceration - Eye Eye exam: Normal appearance. negative: Conjunctival injection, Periorbital swelling, Periorbital tenderness, Scleral icterus - ENT Ear exam: negative: Auricular hematoma, Auricular trauma Nasal Exam: negative: Active bleeding, Discharge, Dried blood, Foreign body Mouth exam: negative: Drooling, Laceration, Muffled voice, Tongue elevation - Neck Neck exam: Normal inspection. negative: Meningismus, Tenderness - Respiratory Respiratory exam: Rhonchi (RLL). negative: Rales - Cardiovascular Cardiovascular Exam: Regular rate, Normal rhythm, Normal heart sounds - GI/Abdominal GI/Abdominal exam: Soft. negative: Rebound, Rigid, Tenderness - Rectal Rectal exam: Deferred - exam: Deferred - Extremities Extremities exam: Normal inspection, Pedal edema (left side which is surgical leg). negative: Tenderness - Back Back exam: Denies: CVA tenderness (R), CVA tenderness (L) - Neurological Neurological exam: Alert, Oriented X3. negative: Motor sensory deficit - Psychiatric Psychiatric exam: Normal affect, Normal mood - Skin Skin exam: Normal color, Other (left knee incision well-approximated, no s/sx of infection). negative: Abrasion Type of lesion: negative: abrasion Hospitalization - Hospitalization Admission Diagnosis: HCAP. Hypoxia. COPD - Problem List/Discharge Diagnosis (1) HCAP (healthcare-associated pneumonia) Status: Acute Base Code: J18.9 - PNEUMONIA, UNSPECIFIED ORGANISM Comment: -Maintaining O2 sats 90-93% on RA -Discontinue IV therapy. -Start Levaquin 250mg every other day x 4 doses, for a total of 5 doses including IV dose (renal dosing) -Continue home inhaler regimen (2) COPD (chronic obstructive pulmonary disease) Status: Acute Discharge Diagnosis: COPD type: unspecified COPD Qualified Code(s): J44.9 - Chronic obstructive pulmonary disease, unspecified Base Code: J44.9 - CHRONIC OBSTRUCTIVE PULMONARY DISEASE, UNSPECIFIED Comment : 02/03/19 -Maintains sats 90-93% on RA -Continue home inhaler regimen (3) Full code status Status: Acute Base Code: Z78.9 - OTHER SPECIFIED HEALTH STATUS Comment: 02/03 -Full code this admission (4) DVT (deep venous thrombosis) Status: Acute Base Code: I82.409 - ACUTE EMBOLISM AND THOMBOS UNSP DEEP VN UNSP LOWER EXTREMITY Comment: 02/03/19 -Continue home dose of Eliquis 5mg PO BID -Encourage ambulation (5) Diabetes mellitus, type II, insulin dependent Status: Acute Base Code: E11.9 - TYPE 2 DIABETES MELLITUS WITHOUT COMPLICATIONS; Z79.4 - STENO TYPIST (CURRENT) USE OF INSULIN Comment: 02/03/19 -Return to home dose of Metformin (recommend stopping d/t nephrotoxicity) -Continue Levemir 55 units q. AM (6) Hypoxia Status: Acute Base Code: R09.02 - HYPOXEMIA Comment: 02/03/19 -O2 sat 72% RA on arrival to ED, currently 90-93% on RA with rest and exertion (7) H/O left knee surgery Status: Acute Base Code: Z98.890 - OTHER SPECIFIED POSTPROCEDURAL STATES Comment: 02/03/19 -S/p left knee surgery approximately 2 weeks ago -Concerned about falling behind on PT/OT d/t hospitalization -Ortho surgeon wrote script for outpatient PT/OT and unable to start until (8) CKD (chronic kidney disease), stage IV Status: Acute Base Code: N18.4 - CHRONIC KIDNEY DISEASE, STAGE 4 (SEVERE) Comment: 02/03/19 -Restart Metformin when home, recommended discussing stopping this medication with PCP -Renal dosing to home antibiotic - Hospitalization Course Disposition: Home, Self-Care Hospital Course: Marii Landry is a 73 y.o. F who presented to the [facility] ED for SALVADOR and a "rattley cough x 2 weeks". Had similar symptoms in October and was treated for PNA. Has inhalers at home d/t COPD and has been using. Did undergo a left knee surgery at [facility] 2 weeks ago. Has been anticoagulated with Eliquis and denied calf swelling, leg pain, chest pain or hx of DVT/PE. While in the ED, Dr. Chacon and pt discussed low likelihood of PE and higher likelihood of PNA causing increased SALVADOR. Additionally, d/t Stage 4 CKD and pt not wanting to transfer to higher level of care to r/o PE, it was agreed upon that pt would remain at [facility] and be treated for clinical s/sx of HCAP. PMHx: COPD, CKD 4, DM II, heart disease ED Course O2 sat 72% on arrival EKG: NSR, rate 93, borderline ST depression I, AVL, V4-V6 Labs: WBC 23.3, Hgb/HCT 10.5/34, GFR 36 (baseline) CXR: New bilateral infiltrates, right side greater than left, maybe small bibasilar effusion 02/02/19 1515: Sitting up in chair, conversing with ease. Alert and appropriate. Reports that she feels much less SOB than the previous evening. Only having pain in left knee d/t recent knee surgery. States that her baseline O2 sat is 89-92% on RA. Does not have home oxygen. Currently is wearing 3L per NC and O2 sat is 93% at rest. Has only had to use nebulizer once. Doesn't feel like she has anything to hack up. Cough has improved. Reports that her "Metformin is always stopped when in the hospital d/t my kidney function." States that she has been in CKD 4 x 4-5 years and that GFR stays stable, even with Metformin use. Concerned about falling behind with progress on her left knee d/t recent surgery. Motivated to get up and move when able to breathe. 02/03/19 1100: Reports that she is feeling much better today and is ready to go home. O2 sats have returned to baseline on RA with rest and exertion. Wonders if she should have a f/u with lung doctor and PCP. Procedures: Imaging and X-Rays 02/01/19 20:29 CHEST 2 VIEWS [RAD] Stat Cardiology Procedures 02/01/19 20:29 EKG NOW 02/01/19 23:13 [employer]er .Continuous Abnormal Labs: Abnormal Lab Results 02/01/19 02/01/19 02/02/19 Range/Units 20:30 20:30 08:22 WBC 23.3 H* (4.2-12.2) K/uL RBC (3.80-5.40) M/uL Hgb 10.5 L (11.6-16.0) gm/dl Hct 34.5 L (35.0-47.0) % MCH 26.3 L (27-33) pg MCHC 30.4 L (32-36) g/dl RDW 15.0 H (11.5-14.5) % Neutrophils % 85.0 H (47-80) % Lymphocytes % 4.0 L (16-45) % Lymphocytes 6.0 L (16-45) % Potassium 4.8 H 4.7 H (3.4-4.5) mmol/L BUN 29 H 27 H (8-23) mg/dL Creatinine 1.5 H 1.6 H (0.5-0.9) mg/dL POC Glucose (70-110) mg/dL Random Glucose 140 H 114 H (74-109) mg/dL Alkaline Phosphatase 132 H 111 H (35-104) U/L Troponin T 0.012 H (0-0.010) ng/mL Albumin 3.7 L 3.1 L (4.0-5.0) g/dL Albumin/Globulin Ratio 1.0 L 0.9 L (1.1-1.8) 02/02/19 02/02/19 Range/Units 08:25 11:52 WBC 17.0 H (4.2-12.2) K/uL RBC 3.49 L (3.80-5.40) M/uL Hgb 9.4 L (11.6-16.0) gm/dl Hct 30.5 L (35.0-47.0) % MCH 26.9 L (27-33) pg MCHC 30.8 L (32-36) g/dl RDW 15.0 H (11.5-14.5) % Neutrophils % 91.0 H (47-80) % Lymphocytes % (16-45) % Lymphocytes 6.0 L (16-45) % Potassium (3.4-4.5) mmol/L BUN (8-23) mg/dL Creatinine (0.5-0.9) mg/dL POC Glucose 113 H (70-110) mg/dL Random Glucose (74-109) mg/dL Alkaline Phosphatase (35-104) U/L Troponin T (0-0.010) ng/mL Albumin (4.0-5.0) g/dL Albumin/Globulin Ratio (1.1-1.8) Condition at Discharge: (2) Stable Discharge Medications - Discharge Medications Prescriptions: Levofloxacin [Levaquin] 250 mg PO ASDIR 4 Days #4 tablet Home Medications: Ambulatory Orders Apixaban [Eliquis] 5 mg PO BID 11/20/18 [Last Taken 02/01/19] Aspirin 81 mg PO DAILY 11/20/18 [Last Taken 02/01/19] Fluticasone/Salmeterol [Advair Hfa 115-21 Mcg Inhaler] 2 puff IH BID 11/20/18 [ Last Taken 02/01/19] Furosemide 40 mg PO DAILY 11/20/18 [Last Taken 02/01/19] Metformin HCl 1,000 mg PO BID 11/20/18 [Last Taken 02/01/19] Metoprolol Succinate 100 mg PO DAILY 11/20/18 [Last Taken 02/01/19] Montelukast Sodium [Singulair] 10 mg PO QHS 11/20/18 [Last Taken 01/31/19] Pregabalin [Lyrica] 150 mg PO BID 11/20/18 [Last Taken 02/01/19] Tiotropium [place] [Spiriva Respimat] 4 mg IH DAILY 11/20/18 [Last Taken ] Acetaminophen [Tylenol Extra Strength] 500 mg PO BID PRN 02/01/19 [Last Taken Unknown] Insulin Glargine,Hum.rec.anlog [Lantus Solostar] 55 units SQ QAM 02/01/19 [Last Taken 02/01/19 07:00 55 UNITS] Amiodarone HCl [Pacerone] 200 mg PO QAM 02/02/19 [Last Taken 02/01/19 07:00 200 MG] Lovastatin 40 mg PO QHS 02/02/19 [Last Taken 01/31/19 23:30 40 MG] Acetaminophen [Tylenol 500Mg Tab] 1,000 mg PO Q6H PRN tablet 02/03/19 [Last Taken Unknown] Amiodarone HCl [Pacerone] 200 mg PO DAILY tablet 02/03/19 [Last Taken Unknown] Fluticasone Propionate [Flonase] 1 spray NA DAILY btl 02/03/19 [Last Taken Unknown] Levofloxacin [Levaquin] 250 mg PO ASDIR 4 Days #4 tablet 02/03/19 [Last Taken Unknown] Discharge Plan - Discharge Instructions Activity at Discharge: Ambulate Only With Your Walker, Resume Usual Activities As Tolerated Diet at Discharge: Advance to Usual Diet Instructions: Bacterial Pneumonia (DC) Additional Instructions: Take 1 Levaquin tablet every other day for a total of 4 doses Follow up with Primary Care Provider in 1-2 weeks Recommend follow up with Saturator Operator as well Quality Measures - Quality Measures Quality Measures: Advance Directives, Documentation of Current Medications in Medical Record, Elder Maltreatment Screen and Follow-Up Plan, Screening for High Blood Pressure and F/U Documented - Current Medications Quality Measure: Measure #130: Documentation of Current Medications Documentation of Current Medications: <Current Medications Documented/Reviewed> [F5556] - Blood Pressure Screening Quality Measure: Screening for High Blood Pressure and Follow-Up Documented Does Patient Have Any of the Following: Active Dx of HTN Blood Pressure Classification: Hypertensive Reading Systolic Measurement: 159 Diastolic Measurement: 70 Screening for High Blood Pressure: Patient Exclusion, Hx of HTN [G9744] - Advance Directives Quality Measure: Measure #47: Care Plan Advance Directives Established: No Advance Directives Information Provided To Patient: Declined Advance Directives on File: No Living Will: No Power of Coarse Wire Drawer: No Advance Care Planning: <Care Plan/Decision Maker Documented; Discussed & Documented> [6880F] - Elder Abuse Suspicion Index Screening: Elder Abuse Suspicion Index Screening Rely on people for bathing, dressing, shopping, banking, etc: No Prevented from getting food, clothes, medication, etc: Yes Made to feel shamed or threatened by someone: No Forced to sign papers or use money against will: No Feel afraid, touched in ways not wanted or hurt physically: No Poor eye contact, withdrawn, malnourished, cuts or bruises: No Screening Result: Positive result, One YES response in questions 2-6. EASI Reference Information: Acacia ANGELES, Malia C, Darren D, Eleni Cervantes.Development and validation of a tool to assist physicians identification of elder abuse: The Elder Abuse Suspicion Index (EASI ). Journal of Elder Abuse and Neglect, 2008; 20 (3): 276-300. - Elder Maltreatment Screen Quality Measures: Elder Maltreatment Screen and Follow-Up Plan Elder Maltreatment Screen: <Negative, No Follow-Up Plan Required> [G8734]
[2019-02-04] MEDS ORDERED: LEVOFLOXACIN/D5W 750 MG/150 ML BAG IVPB SCH (01:00)
== END 2019-02-03 13:08 | disposition home or self-care (01) | DRG 194 ==
LOC: ER 20:25 → MEDSURG 22:31
PROVIDERS: ADMIT Internal Medicine; ATTEND Internal Medicine
DX: J18.9 Pneumonia, unspecified organism (principal); N18.4 Chronic kidney disease, stage 4 (severe); J44.9 Chronic obstructive pulmonary disease, unspecified; R09.02 Hypoxemia; R05 Cough; I10 Essential (primary) hypertension; E11.9 Type 2 diabetes mellitus without complications; Z79.4 Long term (current) use of insulin; I49.9 Cardiac arrhythmia, unspecified; G47.33 Obstructive sleep apnea (adult) (pediatric); Z87.891 Personal history of nicotine dependence; Z96.652 Presence of left artificial knee joint; Z86.73 Personal history of transient ischemic attack (TIA), and cerebral infarction without residual deficits; Z85.820 Personal history of malignant melanoma of skin; Z95.1 Presence of aortocoronary bypass graft
CPT/HCPCS: 36416; 71046; 80053; 82948; 84145; 84484; 85027; 93005; 93010; 94618; 94640; 94760; 94761; 96365; 96366; 99223; 99239; 99285; J1956; J2543; J7613

== ENCOUNTER 2019-02-03 21:52 | Inpatient (IN) | payer MEDICARE ==
[2019-02-03] MEDS ORDERED: IPRATROPIUM/ALBUTEROL (0.5MG/3MG) NEB INH ONE (21:56)
--- NOTE | 2019-02-03 22:02 | Emergency Department Record ---
History of Present Illness - General Chief Complaint: Shortness of breath Stated Complaint: SALVADOR Time Seen by Provider: 02/03/19 21:55 Source: Patient Mode of Arrival: Wheelchair Limitations: No limitations - History of Present Illness Initial Comments: 73 yo female returns to ED following discharge earlier today with worsening difficulty in breathing symptoms. Patient was diagnosed with pneumonia right 2 days ago resulting in hypoxia, reports that she was doing well prior to discharge. Patient got home and became progressively more SOB with mild activity at home. Patient denies fevers, chills, or chest pain symptoms. MD Complaint: Shortness of breath Onset/Timin -: Hour(s) Severity: Moderate Consistency: Constant Improves With: Bronchodilators, Rest Worsens With: Nothing Known History Of: COPD, Recurrent pneumonia Context: Recent illness, Recent URI Associated Symptoms: Denies other symptoms Treatments Prior to Arrival: Bronchodilator - Related Data Home Oxygen Therapy: No Previous Rx's Medication Instructions Recorded Acetaminophen [Tylenol 500Mg Tab] 1,000 mg PO Q6H PRN tablet 02/03/19 Fluticasone Propionate [Flonase] 1 spray NA DAILY btl 02/03/19 Levofloxacin [Levaquin] 250 mg PO ASDIR 4 Days #4 tablet 02/03/19 Allergies Allergy/AdvReac Type Severity Reaction Status Date / Time No Known Drug Allergies Allergy Verified 11/20/18 18:06 Review of Systems Constitutional: Denies: Chills, Fever, Malaise, Night sweats Eyes: Denies: Eye discharge, Eye pain ENT: Denies: Congestion, Ear pain, Epistaxis Respiratory: Reports: Cough, Dyspnea, Wheezes Cardiovascular: Reports: Dyspnea on exertion. Denies: Chest pain, Edema Endocrine: Denies: Fatigue, Heat or cold intolerance Gastrointestinal: Denies: Abdominal pain, Nausea, Vomiting Genitourinary: Denies: Incontinence, Retention Musculoskeletal: Denies: Arthralgia, Back pain Skin: Denies: Bruising, Change in color Neurological: Denies: Abnormal gait, Confusion, Headache, Seizure Psychiatric: Denies: Anxiety Hematological/Lymphatic: Denies: Anemia, Blood Clots Past Medical History - SOCIAL HISTORY Smoking Status: Former smoker - RESPIRATORY Hx Respiratory Disorders: Yes Hx COPD: Yes Hx Sleep Apnea: Yes Hx of CPAP: Yes (USES CPAP AT HOME) - CARDIOVASCULAR Hx Cardio Disorders: Yes Hx Abnormal EKG: Yes Hx Irregular Heartbeat: Yes (ON AMIODARONE) - NEURO Hx Neuro Disorders: Yes Hx TIA: Yes () - GI Hx GI Disorders: No - Hx Genitourinary Disorders: No - ENDOCRINE Hx Endocrine Disorders: Yes Hx Diabetes: Yes (INSULIN DEPENDENT) Hx Thyroid Disease: No - MUSCULOSKELETAL Hx Musculoskeletal Disorders: Yes Hx Arthritis: Yes - PSYCH Hx Psych Problems: No - HEMATOLOGY/ONCOLOGY Hx Hematology/Oncology Disorders: Yes Hx Cancer: Yes (melanoma) Hx Chemotherapy: No Hx Radiation Therapy: No Family Medical History Hx Heart Disease: Father Hx HTN: Father Physical Exam - General General Appearance: Alert, Oriented x3, Cooperative, Moderate distress, Other ( Patient is visibly short of breath, hypoxis on examination (74%)) Limitations: No limitations - Head Head exam: Atraumatic, Normocephalic, Normal inspection Head exam detail: negative: Abrasion, Contusion, Drew's sign, General tenderness, Hematoma, Laceration - Eye Eye exam: Normal appearance. negative: Conjunctival injection, Periorbital swelling, Periorbital tenderness, Scleral icterus - ENT Ear exam: negative: Auricular hematoma, Auricular trauma Nasal Exam: negative: Active bleeding, Discharge, Dried blood, Foreign body Mouth exam: negative: Drooling, Laceration, Muffled voice, Tongue elevation - Neck Neck exam: Normal inspection. negative: Meningismus, Tenderness - Respiratory Respiratory exam: Respiratory distress. negative: Rales, Rhonchi, Stridor - Cardiovascular Cardiovascular Exam: Normal rhythm, Normal heart sounds, Tachycardia - GI/Abdominal GI/Abdominal exam: Soft. negative: Rebound, Rigid, Tenderness - Rectal Rectal exam: Deferred - exam: Deferred - Extremities Extremities exam: Other (Post-op total knee left with routine healing.). negative: Pedal edema, Tenderness - Back Back exam: Denies: CVA tenderness (R), CVA tenderness (L) - Neurological Neurological exam: Alert, Oriented X3 - Psychiatric Psychiatric exam: Normal affect, Normal mood - Skin Skin exam: Normal color. negative: Abrasion Type of lesion: negative: abrasion Course - Reevaluation(s) Reevaluation #1: 02/03/19 22:10 CXR: Interval increased appearance of the RUL infiltrate compared with 02/01/19. Reevaluation #2: 02/03/19 22:57 Laboratory studies were reviewed and are grossly unremarkable for an acute process except for the following: WBC 12.5, 87% neutrophils, 2% bands Hgb 10.6 (stable from previous) GFR 39 (at baseline) Troponin 0.019 Patient was updated on all results, will resume Levaquin IV and admit for further evaluation. Patient is in agreement with the plan of care as discussed. Reevaluation #3: 02/04/19 06:58 Case was discussed with Fanta Bettencourt NP, will accept admission at this time. Medical Decision Making - Lab Data Result diagrams: 02/03/19 22:25 02/03/19 22:25 Disposition Disposition: Admit Clinical Impression: HCAP (healthcare-associated pneumonia), Hypoxia COPD (chronic obstructive pulmonary disease) Qualifiers: COPD type: unspecified COPD Qualified Code(s): J44.9 - Chronic obstructive pulmonary disease, unspecified Disposition: Still a Patient at [facility] Decision to Admit: Admit from ER Decision to Admit Date: 02/03/19 Decision to Admit Time: 22:51 Condition: (2) Stable Time of Disposition: 22:51 Quality - Quality Measures Quality Measures: N/A - Blood Pressure Screening Does Patient Have Any of the Following: Active Dx of HTN Blood Pressure Classification: Hypertensive Reading Systolic Measurement: 186 Diastolic Measurement: 122 Screening for High Blood Pressure: Patient Exclusion, Hx of HTN [G9744]
[2019-02-03 22:33] LABS: BASO % 0.2 % (0-6); EOS % 0.6 % (0-6); HEMATOCRIT 34.4 % (35.0-47.0); HEMOGLOBIN 10.6 gm/dl (11.6-16.0); LYMPH % 4.7 % (16-45); MEAN CELL VOLUME 86.2 fl (81-97); MEAN CORPUSCULAR HGB CONC 30.8 g/dl (32-36); MEAN PLATELET VOLUME 9.8 fl (7.4-10.4); MONO % 7.6 % (0-9); PLATELET COUNT 371 K/uL (130-400); RED BLOOD COUNT 3.99 M/uL (3.80-5.40); RED CELL DISTRIBUTION WIDTH 14.9 % (11.5-14.5); WHITE BLOOD COUNT W/O DIFF 12.5 K/uL (4.2-12.2)
[2019-02-03 22:36] LABS: MEAN CORPUSCULAR HEMOGLOBIN 26.5 pg (27-33)
[2019-02-03 22:42] LABS: BILIRUBIN,TOTAL 0.3 mg/dL (0.2-1.0); CREATININE 1.4 mg/dL (0.5-0.9)
[2019-02-03 22:43] LABS: TOTAL PROTEIN 7.7 g/dL (6.6-8.7)
[2019-02-03 22:47] LABS: ALB/GLOB RATIO 0.9 (1.1-1.8); ALBUMIN 3.6 g/dL (4.0-5.0)
[2019-02-03 22:49] LABS: ANISOCYTOSIS 1+; PLATELET ESTIMATE NORMAL (NORMAL)
[2019-02-03] MEDS ORDERED: LEVOFLOXACIN/D5W 750 MG/150 ML BAG IVPB SCH (23:17)
[2019-02-03] MEDS ORDERED: 0.9 % SODIUM CHLORIDE 1000ML 1,000 ML IV PRN (23:17)
[2019-02-03] MEDS ORDERED: ACETAMINOPHEN 500 MG TABLET PO PRN (23:17)
[2019-02-04] MEDS ORDERED: PIPERACILLIN SODIUM/TAZOBACTAM 4.5 GM in 0.9 % SODIUM CHLORIDE 100ML 100 ML IVPB SCH ×2 (00:03→00:30)
[2019-02-04] MEDS: ACETAMINOPHEN 500 MG TABLET PO PRN ×3 (02:26→23:17)
[2019-02-04] MEDS: ALBUTEROL SULFATE (0.083%) 2.5 MG/3 ML NEB INH PRN ×4 (06:39→21:02)
[2019-02-04] MEDS: METFORMIN 500 MG TABLET PO SCH ×2 (08:41→08:44)
[2019-02-04] MEDS: PIPERACILLIN SODIUM/TAZOBACTAM 4.5 GM in 0.9 % SODIUM CHLORIDE 100ML 100 ML IVPB SCH ×3 (08:43→21:25)
[2019-02-04] MEDS ORDERED: LEVOFLOXACIN/D5W 750 MG/150 ML BAG IVPB SCH (09:00)
[2019-02-04] MEDS ORDERED: METHYLPREDNISOLONE PF 125MG/VIAL IVP SCH ×2 (09:00→10:00)
[2019-02-04] MEDS: LEVEMIR FLEXTOUCH 100 UNIT/ML INSULIN PEN SQ SCH (09:39)
[2019-02-04] MEDS: PREGABALIN 50 MG CAPSULE PO SCH ×2 (09:45→21:22)
[2019-02-04] MEDS: FUROSEMIDE 40 MG TABLET PO SCH (09:46)
[2019-02-04] MEDS: METOPROLOL SUCC 50 MG TABLET PO SCH (09:46)
[2019-02-04] MEDS: ASPIRIN 81 MG CHEWABLE TABLET PO SCH (09:46)
[2019-02-04] MEDS: AMIODARONE HCL 200 MG TABLET PO SCH (09:46)
[2019-02-04] MEDS: APIXABAN 5MG TABLET PO SCH ×2 (09:46→21:23)
[2019-02-04] MEDS: LEVOFLOXACIN/D5W 750 MG/150 ML BAG IVPB SCH ×2 (09:47→11:00)
[2019-02-04] MEDS: BREO (FLUTICASONE/VILANTEROL) 200MCG/25MCG INHALER INH SCH (09:56)
[2019-02-04] MEDS: SPIRIVA INH SCH (09:57)
[2019-02-04] MEDS ORDERED: UMECLIDINIUM BROMIDE (INCRUSE) 62.5MCG IH SCH (10:00)
--- NOTE | 2019-02-04 13:22 | History & Physical ---
History of Present Illness - Date of Service Date of Service for History & Physical: 02/04/19 - History of Present Illness Admitting Diagnosis: HCAP. COPD exacerbation. Hypoxia. CKD History of Present Illness: Marii Landry is a 73 y.o. F who returned to the [facility] last evening , after being discharged from the hospital several hours earlier. Was dx'd with right sided PNA 2 days prior which resulted in hypoxia. Was feeling well prior to discharge yesterday and oxygen saturations were at baseline at rest and with activity before leaving. Became progressively more SOB after returning home and reports that her O2 sat decreased to 74% at home. Recently underwent a left total knee surgery and has been taking Eliquis for anticoagulation. PMHx includes COPD, RASHIDA with CPAP, Afib, Hx of TIA, DM II, CKD 4. ED Course CXR: increased appearance of the RUL infiltrate as compared with 02/01/19 Labs: WBC 12.5, neutrophils 87%, bands 2%, Hgb 10.6, GFR 39 (baseline), Troponin 0.19 02/04/19 1300 Vitals: T 97.2, HR 70, BP 181/67, RR 16, SpO2 98% on 4L NC Sitting up in bed, in mild distress. States that she had just been up to the bathroom and changed her gown which made her extremely SOB. Able to speak in 4- 5 word sentences. Reports that she felt well prior to discharging yesterday but got more SOB at home and couldn't recover. Denies pain, other than in left surgical knee, for which she only takes Tylenol. States that bowels are working well. Travel Screening - Travel/Exposure Within Last 30 Days Have you traveled within the last 30 days?: No - Travel/Exposure Within Last Year Have you traveled outside the [place] in the last year?: No - Additonal Travel Details Have you been exposed to anyone with a communicable illness?: No - Travel Symptoms Symptom Screening: None Review of Systems Reviewed: No additional complaints except as noted below Constitutional: Denies: Chills, Fever, Malaise, Night sweats Eyes: Denies: Eye discharge, Eye pain ENT: Denies: Congestion, Ear pain, Epistaxis Respiratory: Reports: Cough, Dyspnea, Wheezes Cardiovascular: Reports: Dyspnea on exertion. Denies: Chest pain, Edema Endocrine: Denies: Fatigue, Heat or cold intolerance Gastrointestinal: Denies: Abdominal pain, Nausea, Vomiting Genitourinary: Denies: Incontinence, Retention Musculoskeletal: Reports: Arthralgia (left knee). Denies: Back pain Skin: Denies: Bruising, Change in color Neurological: Denies: Abnormal gait, Confusion, Headache, Seizure Psychiatric: Denies: Anxiety Hematological/Lymphatic: Denies: Anemia, Blood Clots Past Medical History - SOCIAL HISTORY Smoking Status: Former smoker - RESPIRATORY Hx Respiratory Disorders: Yes Hx COPD: Yes Hx Sleep Apnea: Yes Hx of CPAP: Yes (USES CPAP AT HOME) - CARDIOVASCULAR Hx Cardio Disorders: Yes Hx Abnormal EKG: Yes Hx Irregular Heartbeat: Yes (ON AMIODARONE) - NEURO Hx Neuro Disorders: Yes Hx TIA: Yes () - GI Hx GI Disorders: No - Hx Genitourinary Disorders: No - ENDOCRINE Hx Endocrine Disorders: Yes Hx Diabetes: Yes (INSULIN DEPENDENT) Hx Thyroid Disease: No - MUSCULOSKELETAL Hx Musculoskeletal Disorders: Yes Hx Arthritis: Yes - PSYCH Hx Psych Problems: No - HEMATOLOGY/ONCOLOGY Hx Hematology/Oncology Disorders: Yes Hx Cancer: Yes (melanoma) Hx Chemotherapy: No Hx Radiation Therapy: No Family Medical History Hx Heart Disease: Father Hx HTN: Father H&P Meds/Allergies - Allergies Allergies: Allergies Allergy/AdvReac Type Severity Reaction Status Date / Time No Known Drug Allergies Allergy Verified 11/20/18 18:06 - Home Medications Previous Rx's Medication Instructions Recorded Acetaminophen [Tylenol 500Mg Tab] 1,000 mg PO Q6H PRN tablet 02/03/19 Fluticasone Propionate [Flonase] 1 spray NA DAILY btl 02/03/19 Levofloxacin [Levaquin] 250 mg PO ASDIR 4 Days #4 tablet 02/03/19 - Active Medications Active Medications: Current Medications Acetaminophen (Tylenol 500mg Tab) 1,000 mg PO Q6H PRN PRN Reason: PAIN - MILD(1-4)/FEVER Last Admin: 02/04/19 08:42 Dose: 1,000 mg Albuterol Sulfate (Albuterol Sulfate) 2.5 mg INH RESP.Q2H PRN PRN Reason: DIFFICULTY IN BREATHING Last Admin: 02/04/19 13:11 Dose: 2.5 mg Amiodarone HCl (Pacerone) 200 mg PO QAM [facility] Last Admin: 02/04/19 09:46 Dose: 200 mg Apixaban (Eliquis) 5 mg PO BID [facility] Last Admin: 02/04/19 09:46 Dose: 5 mg Aspirin (Aspirin Chewable) 81 mg PO DAILY [facility] Last Admin: 02/04/19 09:46 Dose: 81 mg Furosemide (Lasix) 40 mg PO DAILY [facility] Last Admin: 02/04/19 09:46 Dose: 40 mg Sodium Chloride () 1,000 mls @ 100 mls/hr IV .Q10H PRN PRN Reason: LARGE VOLUME IV Last Admin: 02/04/19 00:44 Dose: 100 mls/hr Levofloxacin/Dextrose (Levaquin 750mg Ivpb) 750 mg in 150 mls @ 125 mls/hr IVPB Q48H [facility] Stop: 02/09/19 09:01 Last Admin: 02/04/19 09:47 Dose: 125 mls/hr Piperacillin Sod/Tazobactam (Sod 4.5 gm/ Sodium Chloride) 100 mls @ 200 mls/hr IVPB Q6H [facility] Last Infusion: 02/04/19 09:20 Dose: Infused Insulin Detemir (Levemir Flextouch) 55 unit SQ QAM [facility] Last Admin: 02/04/19 09:39 Dose: 55 unit Metformin HCl (Glucophage Ir) 1,000 mg PO BIDWM [facility] Last Admin: 02/04/19 08:44 Dose: 1,000 mg Metoprolol Succinate (Toprol Xl) 100 mg PO DAILY [facility] Last Admin: 02/04/19 09:46 Dose: 100 mg Montelukast Sodium (Singulair) 10 mg PO QHS [facility] Spiriva 2 each INH DAILY [facility] Last Admin: 02/04/19 09:57 Dose: 2 each Prednisone (Prednisone 20mg) 20 mg PO DAILYWM [facility] Stop: 02/09/19 08:01 Pregabalin (Lyrica) 150 mg PO BID [facility] Last Admin: 02/04/19 09:45 Dose: 150 mg Simvastatin (Zocor) 20 mg PO QHS [facility] Physical Exam - Vital Signs Vital Signs: Vital Signs - Last 24 Hrs Temp Pulse Pulse Pulse Resp BP BP 02/04/19 12:00 97.3 F L 70 16 181/67 02/04/19 10:00 80 18 02/04/19 08:00 97.5 F L 66 16 141/51 02/04/19 07:58 89 87 18 02/04/19 06:41 82 18 02/04/19 02:58 87 20 02/04/19 00:00 98.5 F 87 20 173/62 02/03/19 23:12 89 20 168/64 02/03/19 22:03 96 H 18 02/03/19 21:53 99.0 F 107 H 24 186/122 Pulse Ox 02/04/19 12:00 98 02/04/19 10:00 97 02/04/19 08:00 96 02/04/19 07:58 02/04/19 06:41 97 02/04/19 02:58 02/04/19 00:00 97 02/03/19 23:12 99 02/03/19 22:03 95 02/03/19 21:53 96 - General General Appearance: Alert, Oriented x3, Cooperative, Mild distress Limitations: No limitations - Head Head exam: Atraumatic, Normocephalic, Normal inspection Head exam detail: negative: Abrasion, Contusion, Drew's sign, General tenderness, Hematoma, Laceration - Eye Eye exam: Normal appearance. negative: Conjunctival injection, Periorbital swelling, Periorbital tenderness, Scleral icterus - ENT Ear exam: negative: Auricular hematoma, Auricular trauma Nasal Exam: negative: Active bleeding, Discharge, Dried blood, Foreign body Mouth exam: negative: Drooling, Laceration, Muffled voice, Tongue elevation - Neck Neck exam: Normal inspection. negative: Meningismus, Tenderness - Respiratory Respiratory exam: Respiratory distress (tachypnea d/t exertion), Rhonchi (RLL). negative: Rales, Stridor - Cardiovascular Cardiovascular Exam: Normal rhythm, Normal heart sounds, Tachycardia - GI/Abdominal GI/Abdominal exam: Soft. negative: Rebound, Rigid, Tenderness - Rectal Rectal exam: Deferred - exam: Deferred - Extremities Extremities exam: Other (Post-op total knee left with routine healing.). negative: Pedal edema, Tenderness - Back Back exam: Denies: CVA tenderness (R), CVA tenderness (L) - Neurological Neurological exam: Alert, Oriented X3 - Psychiatric Psychiatric exam: Normal affect, Normal mood - Skin Skin exam: Normal color. negative: Abrasion Type of lesion: negative: abrasion Results - Labs Result Diagrams: 02/03/19 22:25 02/03/19 22:25 Labs Last 24 Hours: Laboratory Results - last 24 hr 02/03/19 02/03/19 02/04/19 22:25 22:25 07:30 WBC 12.5 H RBC 3.99 Hgb 10.6 L Hct 34.4 L MCV 86.2 MCH 26.5 L MCHC 30.8 L RDW 14.9 H Plt Count 371 MPV 9.8 Neutrophils % 87.0 H Band Neutrophils % 2.0 Lymphocytes % 4.7 L Monocytes % 7.6 Eosinophils % 0.6 Basophils % 0.2 Lymphocytes 6.0 L Monocytes 4.0 Platelet Estimate Normal Anisocytosis 1+ Eosinophil Count 1.0 Sodium 139 Potassium 4.2 Chloride 100 Carbon Dioxide 25.0 Anion Gap 14.0 BUN 32 H Creatinine 1.4 H Estimated GFR 39 POC Glucose 67 L Random Glucose 223 H Calcium 8.9 Total Bilirubin 0.30 AST 31 ALT 29 Alkaline Phosphatase 205 H Troponin T 0.019 H Total Protein 7.7 Albumin 3.6 L Globulin 4.1 Albumin/Globulin Ratio 0.9 L 02/04/19 08:00 WBC RBC Hgb Hct MCV MCH MCHC RDW Plt Count MPV Neutrophils % Band Neutrophils % Lymphocytes % Monocytes % Eosinophils % Basophils % Lymphocytes Monocytes Platelet Estimate Anisocytosis Eosinophil Count Sodium Potassium Chloride Carbon Dioxide Anion Gap BUN Creatinine Estimated GFR POC Glucose 103 Random Glucose Calcium Total Bilirubin AST ALT Alkaline Phosphatase Troponin T Total Protein Albumin Globulin Albumin/Globulin Ratio VTE H&P Assessment - Risk for VTE Risk for VTE: Yes Risk Level: High Risk Assessment Date: 02/04/19 Risk Assessment Time: 13:00 VTE Orders Placed or Will Be Placed: Yes Plan - Inpatient Certification Inpatient Certification: Admit to inpatient care: Based on my medical assessment, after consideration of patient's risk factors (age, co-morbidities and patient presenting symptoms and acuity), I expect that this patient will remain in the hospital greater than or equal to two midnights and that the services needed warrant inpatient care because: Patient Risk Factors: [age, chronic medical conditions, hypoxia] Estimated length of stay: [2 days] The patient may reasonably be expected to be discharged or transferred to a hospital within 96 hours after admission to [facility]. Services needed: [IV Therapy, Respiratory therapy, PT/OT] Post hospital care (if known): [home] I certify that my determination is in accordance with my understanding of Medicare requirements for reasonable and necessary inpatient services. 02/04/19 19:47 - Detailed Diagnosis and Plan (1) Hypoxia Current Visit: Yes Status: Acute Base Code: R09.02 - HYPOXEMIA Comment: -O2 sat 74% RA on arrival to ED, currently 98% on 4L NC -was sating at 90-93% on RA with rest and exertion prior to d/c on 02/03/19 -Worsening Right lobe PNA on CXR from 02/03/19 -Continue Zosyn and levaquin (2) COPD (chronic obstructive pulmonary disease) Current Visit: Yes Status: Acute Qualifiers: COPD type: unspecified COPD Qualified Code(s): J44.9 - Chronic obstructive pulmonary disease, unspecified Base Code: J44.9 - CHRONIC OBSTRUCTIVE PULMONARY DISEASE, UNSPECIFIED Comment : 02/04/19 -CXR: worsening right lobe PNA -Continue IV Zosyn and Levaquin -IV Solumedrol changed to PO Prednisone 20mg daily d/t DM II -Respiratory Therapy for breathing treatments and oxygen titration (3) HCAP (healthcare-associated pneumonia) Current Visit: Yes Status: Acute Base Code: J18.9 - PNEUMONIA, UNSPECIFIED ORGANISM Comment: 02/04/19 -CXR on 02/03/19: worsening right lobe PNA -Continue IV Zosyn and Levaquin (with renal dosing) -WBC 12.5 which is down from 17 on 02/02/19 -Respiratory therapy to maintain oxygen therapy and breathing treatments (4) DVT prophylaxis Current Visit: Yes Status: Acute Base Code: [id number] - (5) CKD (chronic kidney disease), stage IV Current Visit: Yes Status: Acute Base Code: N18.4 - CHRONIC KIDNEY DISEASE, STAGE 4 (SEVERE) Comment: 02/03/19 -Hold Metformin d/t nephrotoxicity -Renal dosing to home antibiotic (6) Diabetes mellitus, type II, insulin dependent Current Visit: Yes Status: Acute Base Code: E11.9 - TYPE 2 DIABETES MELLITUS WITHOUT COMPLICATIONS; 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 AM -Novolog insulin to scale d/t glucose elevation r/t steroid use (7) Full code status Current Visit: Yes Status: Acute Base Code: Z78.9 - OTHER SPECIFIED HEALTH STATUS Comment: 02/04/19 -Full code this admission (8) H/O left knee surgery Current Visit: Yes Status: Acute Base Code: Z98.890 - OTHER SPECIFIED POSTPROCEDURAL STATES Comment: 02/04/19 -S/p left knee surgery approximately 2 weeks ago -Concerned about falling behind on PT/OT d/t hospitalization -Ortho surgeon wrote script for outpatient PT/OT and unable to start until -Tylenol PRN for pain
[2019-02-04] MEDS: NOVOLOG FLEXPEN (INSULIN ASPART) 100 UNITS/ML SQ SCH (17:47)
[2019-02-04] MEDS ORDERED: HYDRALAZINE 20MG/ML VIAL IV PRN (19:28)
[2019-02-04] MEDS: SIMVASTATIN 20 MG TABLET PO SCH (21:22)
[2019-02-04] MEDS: MONTELUKAST SODIUM 10MG TABLET PO SCH (21:23)
[2019-02-05] MEDS: PIPERACILLIN SODIUM/TAZOBACTAM 4.5 GM in 0.9 % SODIUM CHLORIDE 100ML 100 ML IVPB SCH ×2 (01:35→08:46)
[2019-02-05 06:45] LABS: ALB/GLOB RATIO 0.9 (1.1-1.8); ALBUMIN 3.1 g/dL (4.0-5.0); BILIRUBIN,TOTAL 0.2 mg/dL (0.2-1.0); CREATININE 1.4 mg/dL (0.5-0.9); TOTAL PROTEIN 6.7 g/dL (6.6-8.7)
--- NOTE | 2019-02-05 07:42 | RADIOLOGY REPORT ---
EXAM: CHEST HISTORY: COPD AND HYPOXIA. TECHNIQUE: AP view of the chest was obtained. Comparison: 02/01/19. FINDINGS: As previously noted, the patient has previously undergone median sternotomy. There is mild cardiomegaly. There is diffuse increased interstitial markings bilaterally which likely represents an element of pulmonary fibrosis, however, there is increasing confluent infiltrate both in the right upper lobe and in the lingula adjacent to the cardiac border. No effusions are suspected. IMPRESSION: WORSENING BILATERAL INFILTRATE. CARDIOMEGALY WITHOUT OVERT FAILURE. SUSPECT AN ELEMENT OF PULMONARY FIBROSIS. JOB NUMBER: [id number] [facility]
[2019-02-05] MEDS: NOVOLOG FLEXPEN (INSULIN ASPART) 100 UNITS/ML SQ SCH ×3 (08:31→17:33)
[2019-02-05] MEDS: PREDNISONE 20 MG TAB PO SCH (08:32)
[2019-02-05] MEDS: PIPERACILLIN SODIUM/TAZOBACTAM 3.375 GM in 0.9 % SODIUM CHLORIDE 100ML 100 ML IVPB SCH ×3 (08:35→20:23)
[2019-02-05] MEDS: LEVEMIR FLEXTOUCH 100 UNIT/ML INSULIN PEN SQ SCH (09:14)
[2019-02-05] MEDS: AMIODARONE HCL 200 MG TABLET PO SCH (09:16)
[2019-02-05] MEDS: APIXABAN 5MG TABLET PO SCH ×2 (09:16→21:34)
[2019-02-05] MEDS: ASPIRIN 81 MG CHEWABLE TABLET PO SCH (09:16)
[2019-02-05] MEDS: PREGABALIN 50 MG CAPSULE PO SCH ×2 (09:16→21:34)
[2019-02-05] MEDS: METOPROLOL SUCC 50 MG TABLET PO SCH (09:16)
[2019-02-05] MEDS: FUROSEMIDE 40 MG TABLET PO SCH (09:16)
[2019-02-05] MEDS: BREO (FLUTICASONE/VILANTEROL) 200MCG/25MCG INHALER INH SCH (09:37)
[2019-02-05] MEDS: SPIRIVA INH SCH (09:38)
[2019-02-05] MEDS: ACETAMINOPHEN 500 MG TABLET PO PRN ×2 (10:06→15:52)
--- NOTE | 2019-02-05 11:07 | Rehab Evaluation ---
Patient Information - Patient Information Diagnosis: COPD exacerbation, hypoxia Ordered Treatment: OT Evaluate and Treat Status: Initial Evaluation Surgery: Yes (left TKA 3 weeks ago) Past Medical/Surgical Hx: PAST MEDICAL/SURGICAL HISTORY Past Surgical History double bypass- 2014 left total knee-2018 PMH - Respiratory Hx Respiratory Disorders Yes Hx Chronic Obstructive Yes Pulmonary Disease (COPD) Hx Pneumonia Yes: 2018 Hx Sleep Apnea Yes Hx of CPAP Yes: USES CPAP AT HOME PMH - Cardiovascular Hx Cardiovascular Disorders Yes Hx Abnormal EKG Yes Hx Hypertension Yes Hx Irregular Heartbeat Yes: ON AMIODARONE Hx Transient Ischemic Attacks Yes: (TIA) PMH - Neuro Hx Neurological Disorders Yes Hx Transient Ischemic Attacks Yes: (TIA) PMH - GI Hx Gastrointestinal Disorders No PMH - Hx Genitourinary Disorders No PMH - Endocrine Hx Endocrine Disorders Yes Hx Diabetes Yes: INSULIN DEPENDENT Hx Thyroid Disease No PMH - Musculoskeletal Hx Musculoskeletal Disorders Yes Hx Arthritis Yes PMH - Psych Hx Psychiatric Problems No PMH - Hematology/Oncology Hx Hematology/Oncology Yes Disorders Hx Cancer Yes: melanoma Hx Chemotherapy No Hx Radiation Therapy No Premorbid Status: Detail (Pt lives alone in a mobile home. She has a ramp and 2 small steps at the entrance, no railing. She has a walk in shower and seat, no grab bars and an elevated toilet without grab bars. She is Ind with all ADLs and IADLs. She has a 4 wheeled walker and straight cane.) Precautions: [place], Fall - Time With Patient Total Time Spent With Patient (Min): 35 Treatment Procedures: Detail (OT eval low complexity) Subjective Information - Subjective Information Per Patient Objective Data - Pain Pain Present: Yes (3 left knee pain) - Mental Status Patient Orientation: Oriented x3 - Visual Perception Appears within normal limits for therapeutic activities - ROM Within normal limits (Nathan UE AROM WNL) - Strength/Tone Within normal limits (Nathan UE strength WNL) - Coordination Appears within normal limits for therapeutic activities - Transfers Independent (Ind with sit to stand from chair and toilet heights.) - Balance Balance Sitting: Good Balance Standing: Good - Sensation Intact - Gait Detail (Pt ambulating in room without any assistive device.) - ADL's/IADL's Detail (Pt able to complete toileting Indly, doffing slipper socks and donning socks and tennis shoes Indly.) Therapy Assessment - Therapy Assessment Detail (Pt is Ind with partial LE dressing. She reports no concerns with ADLs/ IADLs after discharge.) Problem List - Problem List Occupational Therapy Problem List: Detail (No current IP OT problems identified. ) Goals - Goals Occupational Therapy Goals: No current IP OT goals identified. Prognosis - Prognosis Good Plan - Plan Occupational Therapy Plan: No further IP OT recommended. Thank you for this referral.
[2019-02-05] MEDS ORDERED: NYSTATIN 15 GM POWDER TP PRN (11:09)
--- NOTE | 2019-02-05 11:22 | Rehab Evaluation ---
Patient Information - Patient Information Diagnosis: COPD exacerbation, hypoxia Ordered Treatment: PT Evaluate and Treat Status: Initial Evaluation Surgery: Yes (left TKA 3 weeks ago) Past Medical/Surgical Hx: PAST MEDICAL/SURGICAL HISTORY Past Surgical History double bypass- 2014 left total knee-2018 PMH - Respiratory Hx Respiratory Disorders Yes Hx Chronic Obstructive Yes Pulmonary Disease (COPD) Hx Pneumonia Yes: 2018 Hx Sleep Apnea Yes Hx of CPAP Yes: USES CPAP AT HOME PMH - Cardiovascular Hx Cardiovascular Disorders Yes Hx Abnormal EKG Yes Hx Hypertension Yes Hx Irregular Heartbeat Yes: ON AMIODARONE Hx Transient Ischemic Attacks Yes: (TIA) PMH - Neuro Hx Neurological Disorders Yes Hx Transient Ischemic Attacks Yes: (TIA) PMH - GI Hx Gastrointestinal Disorders No PMH - Hx Genitourinary Disorders No PMH - Endocrine Hx Endocrine Disorders Yes Hx Diabetes Yes: INSULIN DEPENDENT Hx Thyroid Disease No PMH - Musculoskeletal Hx Musculoskeletal Disorders Yes Hx Arthritis Yes PMH - Psych Hx Psychiatric Problems No PMH - Hematology/Oncology Hx Hematology/Oncology Yes Disorders Hx Cancer Yes: melanoma Hx Chemotherapy No Hx Radiation Therapy No Premorbid Status: Detail (Pt lives alone in a mobile home. She has a ramp and 2 small steps at the entrance, no railing. She has a walk in shower and seat, no grab bars and an elevated toilet without grab bars. She is Ind with all ADLs and IADLs. She has a 4 wheeled walker and straight cane.) Precautions: [place], Fall - Time With Patient Total Time Spent With Patient (Min): 30 Treatment Procedures: Detail (Initial Evalustion) Subjective Information - Subjective Information Per Patient (The patient had complaints of L knee pain, level 3 at the highest using 0-10 pain scale.) Objective Data - Mental Status Patient Orientation: Oriented x3 - Visual Perception Appears within normal limits for therapeutic activities - ROM Not within normal limits (The patient's L knee was limited s/p sugery and was not formally measured however extension was to aprox. -5 degrees and flexion to 90 degrees.) - Strength/Tone Not within normal limits (The patient's R LE strength was generally 4+ to 5/5. The patient's L LE strength was hip flexors 3-/5, hip abductors, adductors 4-/5 , knee extensors 3+/5, knee flexors 4-/5, ankle musculature 5/5.) - Bed Mobility Independent (per report.) - Transfers Independent (Independent sit to and from stand and toilet transfer.) - Balance Balance Sitting: Good Balance Standing: Good - Gait Detail (The patient ambulated with front wheeled walker with 3L of O2 180 feet independently with verbal cues only for deep breathing. The patient declined ambulation on stairs.) Therapy Assessment - Therapy Assessment Detail (The patient was independent with ambulation, transfers and bed mobility. The patient requires O2 for physical activity including ambulation. Refer to RT notes. RT was present during ambulation. The patient is currently receiveing Home PT for TKA post surgical rehab and is schedule for outpatient rehab the end of this month. No inpatient PT needs at this time. PT will monitor TKA exercises and progression.) Problem List - Problem List Physical Therapy Problem List: Detail (1) Shortness of breath with ambulation 2 ) Decreased L knee AROM and strength s/p L TKA) Occupational Therapy Problem List: Detail (No current IP OT problems identified. ) Goals - Goals Physical Therapy Goals: 1) PT will monitor TKA HEP and progress as tolerated. Occupational Therapy Goals: No current IP OT goals identified. Prognosis - Prognosis Good Plan - Plan Physical Therapy Plan: PT will monitor patient's TKA HEP as needed until discharge from [facility]. Occupational Therapy Plan: No further IP OT recommended. Thank you for this referral.
--- NOTE | 2019-02-05 12:16 | Physician Progress Note ---
Subjective - Date Date of Physician Progress Note: 02/06/19 - Subjective Subjective Comment: Feeling better today but still some SOB with activity. Doesn't want to "jump the gun" like over the weekend. Having some discomfort in the left knee d/t surgery. Objective - Vital Signs Vital Signs: Vital Signs - Last 24 Hrs Temp Pulse Pulse Resp BP Pulse Ox 02/05/19 11:39 97.7 F 69 16 172/63 90 L 02/05/19 09:40 77 18 93 L 02/05/19 08:18 16 02/05/19 08:11 68 16 98 02/05/19 07:56 97.2 F L 74 16 194/79 98 02/05/19 04:00 97.5 F L 84 24 165/62 97 02/04/19 21:02 86 20 96 02/04/19 21:00 172/63 02/04/19 20:24 89 22 02/04/19 20:00 98.1 F 89 22 98 02/04/19 16:24 77 18 99 02/04/19 16:00 97.7 F 81 17 176/80 96 02/04/19 13:13 77 18 95 - General General Appearance: Alert, Oriented x3, Cooperative, No acute distress Limitations: No limitations - Head Head exam: Atraumatic, Normocephalic, Normal inspection Head exam detail: negative: Abrasion, Contusion, Drew's sign, General tenderness, Hematoma, Laceration - Eye Eye exam: Normal appearance. negative: Conjunctival injection, Periorbital swelling, Periorbital tenderness, Scleral icterus - ENT Ear exam: negative: Auricular hematoma, Auricular trauma Nasal Exam: negative: Active bleeding, Discharge, Dried blood, Foreign body Mouth exam: negative: Drooling, Laceration, Muffled voice, Tongue elevation - Neck Neck exam: Normal inspection. negative: Meningismus, Tenderness - Respiratory Respiratory exam: Respiratory distress, Rhonchi (RLL). negative: Rales, Stridor - Cardiovascular Cardiovascular Exam: Normal rhythm, Normal heart sounds, Tachycardia - GI/Abdominal GI/Abdominal exam: Soft. negative: Rebound, Rigid, Tenderness - Rectal Rectal exam: Deferred - exam: Deferred - Extremities Extremities exam: Other (Post-op total knee left with routine healing.). negative: Pedal edema, Tenderness - Back Back exam: Denies: CVA tenderness (R), CVA tenderness (L) - Neurological Neurological exam: Alert, Oriented X3 - Psychiatric Psychiatric exam: Normal affect, Normal mood - Skin Skin exam: Normal color. negative: Abrasion Type of lesion: negative: abrasion Assessment and Plan - Assessment and Plan (1) Hypoxia Status: Acute Base Code: R09.02 - HYPOXEMIA Comment: 02/04/19 -O2 sat 74% RA on arrival to ED, currently 93% on 3L NC -was sating at 90-93% on RA with rest and exertion prior to d/c on 02/03/19 -Worsening Right lobe PNA on CXR from 02/03/19 -Continue Zosyn and levaquin (renal dosing) (2) COPD (chronic obstructive pulmonary disease) Status: Acute Qualifiers: COPD type: unspecified COPD Qualified Code(s): J44.9 - Chronic obstructive pulmonary disease, unspecified Base Code: J44.9 - CHRONIC OBSTRUCTIVE PULMONARY DISEASE, UNSPECIFIED Comment : 02/05/19 -CXR: worsening right lobe PNA -Continue IV Zosyn and Levaquin -IV Solumedrol changed to PO Prednisone 20mg daily d/t DM II and elevated blood glucose levels -Respiratory Therapy for breathing treatments and oxygen titration (3) HCAP (healthcare-associated pneumonia) Status: Acute Base Code: J18.9 - PNEUMONIA, UNSPECIFIED ORGANISM Comment: -CXR on 02/03/19: worsening right lobe PNA -Continue IV Zosyn and Levaquin (with renal dosing) -WBC 10.2 which is down from 17 on 02/02/19 -Respiratory therapy to maintain oxygen therapy and breathing treatments (4) DVT prophylaxis Status: Acute Base Code: [id number] - Comment: 02/05/19 -High Risk Factor -Continue Eliquis 5mg PO BID (5) CKD (chronic kidney disease), stage IV Status: Acute Base Code: N18.4 - CHRONIC KIDNEY DISEASE, STAGE 4 (SEVERE) Comment: 02/05/19 -Hold Metformin d/t nephrotoxicity -Renal dosing to home antibiotic (6) Diabetes mellitus, type II, insulin dependent Status: Acute Base Code: E11.9 - TYPE 2 DIABETES MELLITUS WITHOUT COMPLICATIONS; Z79.4 - DETENTION (CURRENT) USE OF INSULIN Comment: 02/05/19 -Hold Metformin d/t nephrotoxicity -Continue Levemir 55 units q. AM -Novolog insulin to scale d/t glucose elevation r/t steroid use (7) Full code status Status: Acute Base Code: Z78.9 - OTHER SPECIFIED HEALTH STATUS Comment: 02/05 -Full code this admission (8) H/O left knee surgery Status: Acute Base Code: Z98.890 - OTHER SPECIFIED POSTPROCEDURAL STATES Comment: 02/05/19 -S/p left knee surgery approximately 2 weeks ago -Concerned about falling behind on PT/OT d/t hospitalization -Ortho surgeon wrote script for outpatient PT/OT and unable to start until -Tylenol PRN for pain Results - Labs Result Diagrams: 02/05/19 06:15 02/05/19 06:15 Labs Last 24 Hours: Laboratory Results - last 24 hr 02/04/19 02/04/19 02/05/19 13:16 17:02 06:15 WBC Cancelled Corrected WBC Cancelled RBC Cancelled Hgb Cancelled Hct Cancelled MCV Cancelled MCH Cancelled MCHC Cancelled RDW Cancelled Plt Count Cancelled MPV Cancelled Gran % Cancelled Neutrophils % Cancelled Band Neutrophils % Cancelled Lymphocytes % Cancelled Monocytes % Cancelled Eosinophils % Cancelled Basophils % Cancelled Lymphocytes Cancelled Monocytes Cancelled Basophils Cancelled Metamyelocytes Cancelled Myelocytes Cancelled Promyelocytes Cancelled Nucleated RBCs Cancelled Differential Comment Cancelled Hypersegmented Polys Cancelled Plasma Cells Cancelled Other Cell Type Cancelled Toxic Granulation Cancelled Dohle Bodies Cancelled Justina Rods Cancelled Platelet Estimate Cancelled RBC Morphology Cancelled Polychromasia Cancelled Hypochromasia Cancelled Poikilocytosis Cancelled Basophilic Stippling Cancelled Anisocytosis Cancelled Microcytosis Cancelled Macrocytosis Cancelled Spherocytes Cancelled Sickle Cells Cancelled Target Cells Cancelled Tear Drop Cells Cancelled Ovalocytes Cancelled Stomatocytes Cancelled Helmet Cells Cancelled [place] Bodies Cancelled Elmer Rings Cancelled Zak Cells Cancelled Acanthocytes (Spur) Cancelled Rouleaux Cancelled Schistocytes Cancelled Morphology Comment Cancelled Eosinophil Count Cancelled Sodium Potassium Chloride Carbon Dioxide Anion Gap BUN Creatinine Estimated GFR POC Glucose 326 H 377 H Random Glucose Calcium Total Bilirubin AST ALT Alkaline Phosphatase Total Protein Albumin Globulin Albumin/Globulin Ratio Procalcitonin 02/05/19 02/05/19 02/05/19 06:15 06:15 06:15 WBC Cancelled Corrected WBC Cancelled RBC Cancelled Hgb Cancelled Hct Cancelled MCV Cancelled MCH Cancelled MCHC Cancelled RDW Cancelled Plt Count Cancelled MPV Cancelled Gran % Cancelled Neutrophils % Cancelled Band Neutrophils % Cancelled Lymphocytes % Cancelled Monocytes % Cancelled Eosinophils % Cancelled Basophils % Cancelled Lymphocytes Cancelled Monocytes Cancelled Basophils Cancelled Metamyelocytes Cancelled Myelocytes Cancelled Promyelocytes Cancelled Nucleated RBCs Cancelled Differential Comment Cancelled Hypersegmented Polys Cancelled Plasma Cells Cancelled Other Cell Type Cancelled Toxic Granulation Cancelled Dohle Bodies Cancelled Justina Rods Cancelled Platelet Estimate Cancelled RBC Morphology Cancelled Polychromasia Cancelled Hypochromasia Cancelled Poikilocytosis Cancelled Basophilic Stippling Cancelled Anisocytosis Cancelled Microcytosis Cancelled Macrocytosis Cancelled Spherocytes Cancelled Sickle Cells Cancelled Target Cells Cancelled Tear Drop Cells Cancelled Ovalocytes Cancelled Stomatocytes Cancelled Helmet Cells Cancelled [place] Bodies Cancelled Elmer Rings Cancelled [place] Cells Cancelled Acanthocytes (Spur) Cancelled Rouleaux Cancelled Schistocytes Cancelled Morphology Comment Cancelled Eosinophil Count Cancelled Sodium 140 Potassium 4.5 Chloride 102 Carbon Dioxide 25.0 Anion Gap 13.0 BUN 29 H Creatinine 1.4 H Estimated GFR 39 POC Glucose Random Glucose 266 H Calcium 9.0 Total Bilirubin 0.20 AST 15 ALT 24 Alkaline Phosphatase 165 H Total Protein 6.7 Albumin 3.1 L Globulin 3.6 Albumin/Globulin Ratio 0.9 L Procalcitonin 0.091 02/05/19 02/05/19 07:58 11:37 WBC Corrected WBC RBC Hgb Hct MCV MCH MCHC RDW Plt Count MPV Gran % Neutrophils % Band Neutrophils % Lymphocytes % Monocytes % Eosinophils % Basophils % Lymphocytes Monocytes Basophils Metamyelocytes Myelocytes Promyelocytes Nucleated RBCs Differential Comment Hypersegmented Polys Plasma Cells Other Cell Type Toxic Granulation Dohle Bodies Justina Rods Platelet Estimate RBC Morphology Polychromasia Hypochromasia Poikilocytosis Basophilic Stippling Anisocytosis Microcytosis Macrocytosis Spherocytes Sickle Cells Target Cells Tear Drop Cells Ovalocytes Stomatocytes Helmet Cells [place] Bodies Elmer Rings Bement Cells Acanthocytes (Spur) Rouleaux Schistocytes Morphology Comment Eosinophil Count Sodium Potassium Chloride Carbon Dioxide Anion Gap BUN Creatinine Estimated GFR POC Glucose 261 H 297 H Random Glucose Calcium Total Bilirubin AST ALT Alkaline Phosphatase Total Protein Albumin Globulin Albumin/Globulin Ratio Procalcitonin DVT/PE Assessment - Risk for VTE Risk for VTE: No Risk Level: High Risk Assessment Date: 02/04/19 Risk Assessment Time: 13:00 VTE Orders Placed or Will Be Placed: Yes - Active Medicaitons Current Medications: Current Medications Acetaminophen (Tylenol 500mg Tab) 1,000 mg PO Q6H PRN PRN Reason: PAIN - MILD(1-4)/FEVER Last Admin: 02/05/19 10:06 Dose: 1,000 mg Albuterol Sulfate (Albuterol Sulfate) 2.5 mg INH RESP.Q2H PRN PRN Reason: DIFFICULTY IN BREATHING Last Admin: 02/04/19 21:02 Dose: 2.5 mg Amiodarone HCl (Pacerone) 200 mg PO QAM [facility] Last Admin: 02/05/19 09:16 Dose: 200 mg Apixaban (Eliquis) 5 mg PO BID [facility] Last Admin: 02/05/19 09:16 Dose: 5 mg Aspirin (Aspirin Chewable) 81 mg PO DAILY [facility] Last Admin: 02/05/19 09:16 Dose: 81 mg Furosemide (Lasix) 40 mg PO DAILY [facility] Last Admin: 02/05/19 09:16 Dose: 40 mg Hydralazine HCl (Apresoline) 5 mg IV Q4HR PRN PRN Reason: HYPERTENSIVE EMERGENCY Levofloxacin/Dextrose (Levaquin 750mg Ivpb) 750 mg in 150 mls @ 125 mls/hr IVPB Q48H [facility] Stop: 02/09/19 09:01 Last Infusion: 02/04/19 13:33 Dose: Infused Piperacillin Sod/Tazobactam (Sod 3.375 gm/ Sodium Chloride) 100 mls @ 200 mls/ hr IVPB Q6H [facility] Last Infusion: 02/05/19 09:20 Dose: Infused Insulin Aspart (Novolog Flexpen) 1 unit SQ TIDINS [facility]; Protocol Last Admin: 02/05/19 12:00 Dose: 8 unit Insulin Detemir (Levemir Flextouch) 55 unit SQ QAM [facility] Last Admin: 02/05/19 09:14 Dose: 55 unit Metformin HCl (Glucophage Ir) 1,000 mg PO BIDWM [facility] Last Admin: 02/04/19 08:44 Dose: 1,000 mg Metoprolol Succinate (Toprol Xl) 100 mg PO DAILY [facility] Last Admin: 02/05/19 09:16 Dose: 100 mg Montelukast Sodium (Singulair) 10 mg PO QHS [facility] Last Admin: 02/04/19 21:23 Dose: 10 mg Nystatin (Nystop) 15 gm TP ASDIR PRN PRN Reason: RASH Last Admin: 02/05/19 11:22 Dose: 15 gm Spiriva 2 each INH DAILY [facility] Last Admin: 02/05/19 09:38 Dose: 2 each Prednisone (Prednisone 20mg) 20 mg PO DAILYWM [facility] Stop: 02/09/19 08:01 Last Admin: 02/05/19 08:32 Dose: 20 mg Pregabalin (Lyrica) 150 mg PO BID [facility] Last Admin: 02/05/19 09:16 Dose: 150 mg Simvastatin (Zocor) 20 mg PO QHS [facility] Last Admin: 02/04/19 21:22 Dose: 20 mg AMI Plan - Labs Result Diagrams: 02/05/19 06:15 02/05/19 06:15
[2019-02-05 12:34] LABS: HEMATOCRIT 30.6 % (35.0-47.0); HEMOGLOBIN 9.1 gm/dl (11.6-16.0); MEAN CORPUSCULAR HGB CONC 29.7 g/dl (32-36); WHITE BLOOD COUNT W/O DIFF 10.2 K/uL (4.2-12.2)
[2019-02-05 12:35] LABS: MEAN CELL VOLUME 87.4 fl (81-97); MEAN PLATELET VOLUME 10.1 fl (7.4-10.4); PLATELET COUNT 381 K/uL (130-400); RED CELL DISTRIBUTION WIDTH 14.7 % (11.5-14.5)
[2019-02-05 12:36] LABS: PLATELET ESTIMATE NORMAL (NORMAL)
[2019-02-05] MEDS: ALBUTEROL SULFATE (0.083%) 2.5 MG/3 ML NEB INH PRN ×2 (16:12→20:30)
[2019-02-05] MEDS: MONTELUKAST SODIUM 10MG TABLET PO SCH (21:34)
[2019-02-05] MEDS: SIMVASTATIN 20 MG TABLET PO SCH (21:34)
[2019-02-06] MEDS: ACETAMINOPHEN 500 MG TABLET PO PRN ×2 (00:07→06:19)
[2019-02-06] MEDS: PIPERACILLIN SODIUM/TAZOBACTAM 3.375 GM in 0.9 % SODIUM CHLORIDE 100ML 100 ML IVPB SCH ×2 (02:38→08:40)
[2019-02-06] MEDS: NOVOLOG FLEXPEN (INSULIN ASPART) 100 UNITS/ML SQ SCH ×2 (07:30→11:15)
[2019-02-06] MEDS ORDERED: HYDROCODONE/APAP 5/325MG TABLET PO PRN (08:35)
[2019-02-06] MEDS: METFORMIN 500 MG TABLET PO SCH (08:38)
[2019-02-06] MEDS: PREDNISONE 20 MG TAB PO SCH (08:38)
[2019-02-06] MEDS: BREO (FLUTICASONE/VILANTEROL) 200MCG/25MCG INHALER INH SCH (09:37)
[2019-02-06] MEDS: SPIRIVA INH SCH (09:38)
[2019-02-06] MEDS: LEVOFLOXACIN/D5W 750 MG/150 ML BAG IVPB SCH (09:43)
[2019-02-06] MEDS: ASPIRIN 81 MG CHEWABLE TABLET PO SCH (09:50)
[2019-02-06] MEDS: METOPROLOL SUCC 50 MG TABLET PO SCH (09:50)
[2019-02-06] MEDS: PREGABALIN 50 MG CAPSULE PO SCH (09:50)
[2019-02-06] MEDS: AMIODARONE HCL 200 MG TABLET PO SCH (09:50)
[2019-02-06] MEDS: APIXABAN 5MG TABLET PO SCH (09:50)
[2019-02-06] MEDS: FUROSEMIDE 40 MG TABLET PO SCH (09:50)
[2019-02-06] MEDS: LEVEMIR FLEXTOUCH 100 UNIT/ML INSULIN PEN SQ SCH (09:54)
--- NOTE | 2019-02-06 10:07 | Discharge Summary ---
Providers Discharge Summary Date: 02/06/19 Date of admission: 02/03/19 23:11 Attending physician: PHILLY RUIZ Primary care physician: STEPH ROSALES M.D. Physical Exam - Vital Signs Vital Signs: Vital Signs - Last 24 Hrs Temp Pulse Pulse Pulse Resp BP Pulse Ox 02/06/19 09:43 80 18 93 L 02/06/19 09:00 89 75 16 02/06/19 07:41 97.3 F L 75 16 160/69 97 02/06/19 04:00 98.0 F 71 22 175/55 95 02/06/19 00:00 81 20 176/84 96 02/05/19 21:00 81 20 02/05/19 20:30 81 20 92 L 02/05/19 20:00 98.2 F 80 24 187/70 92 L 02/05/19 16:16 80 18 92 L 02/05/19 16:00 97.5 F L 72 16 182/76 92 L 02/05/19 11:39 97.7 F 69 16 172/63 90 L - General General Appearance: Alert, Oriented x3, Cooperative, No acute distress Limitations: No limitations - Head Head exam: Atraumatic, Normocephalic, Normal inspection Head exam detail: negative: Abrasion, Contusion, Drew's sign, General tenderness, Hematoma, Laceration - Eye Eye exam: Normal appearance. negative: Conjunctival injection, Periorbital swelling, Periorbital tenderness, Scleral icterus - ENT Ear exam: negative: Auricular hematoma, Auricular trauma Nasal Exam: negative: Active bleeding, Discharge, Dried blood, Foreign body Mouth exam: negative: Drooling, Laceration, Muffled voice, Tongue elevation - Neck Neck exam: Normal inspection. negative: Meningismus, Tenderness - Respiratory Respiratory exam: Rhonchi (RLL). negative: Rales, Stridor - Cardiovascular Cardiovascular Exam: Normal rhythm, Normal heart sounds - GI/Abdominal GI/Abdominal exam: Soft. negative: Rebound, Rigid, Tenderness - Rectal Rectal exam: Deferred - exam: Deferred - Extremities Extremities exam: Other (Post-op total knee left with routine healing.). negative: Pedal edema, Tenderness - Back Back exam: Denies: CVA tenderness (R), CVA tenderness (L) - Neurological Neurological exam: Alert, Oriented X3 - Psychiatric Psychiatric exam: Normal affect, Normal mood - Skin Skin exam: Normal color. negative: Abrasion Type of lesion: negative: abrasion Hospitalization - Hospitalization Admission Diagnosis: HCAP. COPD exacerbation. Hypoxia. CKD - Problem List/Discharge Diagnosis (1) Hypoxia Status: Acute Base Code: R09.02 - HYPOXEMIA Comment: 02/06/19 -O2 sat 74% RA on arrival to ED, currently 90-93% on RA (baseline) -Qualified for home O2 d/t oxygen saturations below 89% on RA -Home Oxygen ordered for short time and instructed to f/u with PCP and/or Director Metabolism (Dr. Bruce) -Continue home inhaler regimen (2) COPD (chronic obstructive pulmonary disease) Status: Acute Discharge Diagnosis: COPD type: unspecified COPD Qualified Code(s): J44.9 - Chronic obstructive pulmonary disease, unspecified Base Code: J44.9 - CHRONIC OBSTRUCTIVE PULMONARY DISEASE, UNSPECIFIED Comment : 02/06/19 -Continue Levaquin 250mg PO q. 48 hours x 2 doses (for a total of 5 doses @ renal dosing) -Prednisone 20mg daily x 5 days -Home Oxygen ordered -F/u with Director Metabolism on 02/09/19 (3) HCAP (healthcare-associated pneumonia) Status: Acute Base Code: J18.9 - PNEUMONIA, UNSPECIFIED ORGANISM Comment: -Levaquin 250mg q. 48 hours x 2 doses (for a total of 5 doses) -WBC 10.2 which is down from 17 on 02/02/19 -Home Oxygen ordered (4) DVT prophylaxis Status: Acute Base Code: [id number] - Comment: 02/06/19 -High Risk Factor -Continue Eliquis 5mg PO BID (5) CKD (chronic kidney disease), stage IV Status: Acute Base Code: N18.4 - CHRONIC KIDNEY DISEASE, STAGE 4 (SEVERE) Comment: 02/06/19 -Restart home dose of Metformin 1000mg PO BID (per PCP orders) -Renal dosing to home antibiotic (6) Diabetes mellitus, type II, insulin dependent Status: Acute Base Code: E11.9 - TYPE 2 DIABETES MELLITUS WITHOUT COMPLICATIONS; Z79.4 - SNF (CURRENT) USE OF INSULIN Comment: 02/06/19 -Restart Metformin 1000mg PO BID -Increase Levemir to 57 units q. AM x 5 days (during Prednisone use), then decrease to 55 units -Instructed to monitor blood glucose levels more closely while on Prednisone (7) Full code status Status: Acute Base Code: Z78.9 - OTHER SPECIFIED HEALTH STATUS Comment: 02/06 -Full code this admission (8) H/O left knee surgery Status: Acute Base Code: Z98.890 - OTHER SPECIFIED POSTPROCEDURAL STATES Comment: 02/06/19 -S/p left knee surgery approximately 2 weeks ago -Concerned about falling behind on PT/OT d/t hospitalization -Ortho surgeon wrote script for outpatient PT/OT and unable to start until -Tylenol PRN for pain (9) Elevated blood-pressure reading without diagnosis of hypertension Status: Acute Base Code: R03.0 - ELEVATED BLOOD-PRESSURE READING, W/O DIAGNOSIS OF HTN Comment: 02/06/19 -Elevated Blood Pressures during visit -Start Amlodipine 5mg daily until f/u with PCP - Hospitalization Course Disposition: Home Health Service Hospital Course: Marii Landry is a 73 y.o. F who returned to the [facility] ED last evening , after being discharged from the hospital several hours earlier. Was dx'd with right sided PNA 2 days prior which resulted in hypoxia. Was feeling well prior to discharge yesterday and oxygen saturations were at baseline at rest and with activity before leaving. Became progressively more SOB after returning home and reports that her O2 sat decreased to 74% at home. Recently underwent a left total knee surgery and has been taking Eliquis for anticoagulation. PMHx includes COPD, RASHIDA with CPAP, Afib, Hx of TIA, DM II, CKD 4. ED Course CXR: increased appearance of the RUL infiltrate as compared with 02/01/19 Labs: WBC 12.5, neutrophils 87%, bands 2%, Hgb 10.6, GFR 39 (baseline), Troponin 0.19 02/04/19 1300 Vitals: T 97.2, HR 70, BP 181/67, RR 16, SpO2 98% on 4L NC Sitting up in bed, in mild distress. States that she had just been up to the bathroom and changed her gown which made her extremely SOB. Able to speak in 4- 5 word sentences. Reports that she felt well prior to discharging yesterday but got more SOB at home and couldn't recover. Denies pain, other than in left surgical knee, for which she only takes Tylenol. States that bowels are working well. 02/06/19 1000 Doing well and thinks she is ready to go home. Reports having had an episode of SOB in the evening, prior to putting CPAP on however states she wonders if she was having some anxiety r/t her BP being elevated and pain in her left knee. Is not currently taking any medications to help with anxiety. Procedures: Imaging and X-Rays 02/03/19 22:02 CHEST 1 VIEW [RAD] Stat Abnormal Labs: Abnormal Lab Results 02/03/19 02/03/19 02/04/19 Range/Units 22:25 22:25 07:30 WBC 12.5 H (4.2-12.2) K/uL RBC (3.80-5.40) M/uL Hgb 10.6 L (11.6-16.0) gm/dl Hct 34.4 L (35.0-47.0) % MCH 26.5 L (27-33) pg MCHC 30.8 L (32-36) g/dl RDW 14.9 H (11.5-14.5) % Neutrophils % 87.0 H (47-80) % Lymphocytes % 4.7 L (16-45) % Lymphocytes 6.0 L (16-45) % BUN 32 H (8-23) mg/dL Creatinine 1.4 H (0.5-0.9) mg/dL POC Glucose 67 L (70-110) mg/dL Random Glucose 223 H (74-109) mg/dL Alkaline Phosphatase 205 H (35-104) U/L Troponin T 0.019 H (0-0.010) ng/mL Albumin 3.6 L (4.0-5.0) g/dL Albumin/Globulin Ratio 0.9 L (1.1-1.8) 02/04/19 02/04/19 02/05/19 Range/Units 13:16 17:02 06:15 WBC (4.2-12.2) K/uL RBC (3.80-5.40) M/uL Hgb (11.6-16.0) gm/dl Hct (35.0-47.0) % MCH (27-33) pg MCHC (32-36) g/dl RDW (11.5-14.5) % Neutrophils % (47-80) % Lymphocytes % (16-45) % Lymphocytes (16-45) % BUN 29 H (8-23) mg/dL Creatinine 1.4 H (0.5-0.9) mg/dL POC Glucose 326 H 377 H (70-110) mg/dL Random Glucose 266 H (74-109) mg/dL Alkaline Phosphatase 165 H (35-104) U/L Troponin T (0-0.010) ng/mL Albumin 3.1 L (4.0-5.0) g/dL Albumin/Globulin Ratio 0.9 L (1.1-1.8) 02/05/19 02/05/19 02/05/19 Range/Units 06:15 07:58 11:37 WBC (4.2-12.2) K/uL RBC 3.50 L (3.80-5.40) M/uL Hgb 9.1 L (11.6-16.0) gm/dl Hct 30.6 L (35.0-47.0) % MCH 26.0 L (27-33) pg MCHC 29.7 L (32-36) g/dl RDW 14.7 H (11.5-14.5) % Neutrophils % 92.0 H (47-80) % Lymphocytes % (16-45) % Lymphocytes 6.0 L (16-45) % BUN (8-23) mg/dL Creatinine (0.5-0.9) mg/dL POC Glucose 261 H 297 H (70-110) mg/dL Random Glucose (74-109) mg/dL Alkaline Phosphatase (35-104) U/L Troponin T (0-0.010) ng/mL Albumin (4.0-5.0) g/dL Albumin/Globulin Ratio (1.1-1.8) 02/05/19 02/06/19 Range/Units 17:04 07:40 WBC (4.2-12.2) K/uL RBC (3.80-5.40) M/uL Hgb (11.6-16.0) gm/dl Hct (35.0-47.0) % MCH (27-33) pg MCHC (32-36) g/dl RDW (11.5-14.5) % Neutrophils % (47-80) % Lymphocytes % (16-45) % Lymphocytes (16-45) % BUN (8-23) mg/dL Creatinine (0.5-0.9) mg/dL POC Glucose 222 H 131 H (70-110) mg/dL Random Glucose (74-109) mg/dL Alkaline Phosphatase (35-104) U/L Troponin T (0-0.010) ng/mL Albumin (4.0-5.0) g/dL Albumin/Globulin Ratio (1.1-1.8) Condition at Discharge: (2) Stable Discharge Medications - Discharge Medications Prescriptions: Amlodipine Besylate 5 mg PO DAILY #14 tab Nystatin [Nystop] 1 applic TP BID PRN #1 bottle PRN Reason: Rash Prednisone [Prednisone 20Mg] 20 mg PO DAILYWM #4 tab Home Medications: Ambulatory Orders Apixaban [Eliquis] 5 mg PO BID 11/20/18 [Last Taken 02/03/19] Aspirin 81 mg PO DAILY 11/20/18 [Last Taken 02/03/19] Fluticasone/Salmeterol [Advair Hfa 115-21 Mcg Inhaler] 2 puff IH BID 11/20/18 [ Last Taken 02/03/19] Furosemide 40 mg PO DAILY 11/20/18 [Last Taken 02/03/19] Metformin HCl 1,000 mg PO BID 11/20/18 [Last Taken 02/03/19] Metoprolol Succinate 100 mg PO DAILY 11/20/18 [Last Taken 02/03/19] Montelukast Sodium [Singulair] 10 mg PO QHS 11/20/18 [Last Taken 02/03/19] Pregabalin [Lyrica] 150 mg PO BID 11/20/18 [Last Taken 02/03/19] Tiotropium [place] [Spiriva Respimat] 4 mg IH DAILY 11/20/18 [Last Taken ] Insulin Glargine,Hum.rec.anlog [Lantus Solostar] 55 units SQ QAM 02/01/19 [Last Taken 02/03/19] Amiodarone HCl [Pacerone] 200 mg PO QAM 02/02/19 [Last Taken 02/03/19] Lovastatin 40 mg PO QHS 02/02/19 [Last Taken 02/03/19] Acetaminophen [Tylenol 500Mg Tab] 1,000 mg PO Q6H PRN tablet 02/03/19 [Last Taken 02/03/19] Fluticasone Propionate [Flonase] 1 spray NA DAILY btl 02/03/19 [Last Taken ] Amlodipine Besylate 5 mg PO DAILY #14 tab 02/06/19 [Last Taken Unknown] Hydrocodone/APAP 5/325Mg [[place] 5Mg/325Mg] 1 each PO Q4H PRN tab 02/06/19 [ Last Taken Unknown] Levofloxacin [Levaquin] 250 mg PO ASDIR 2 Days #2 tablet 02/06/19 [Last Taken ] Nystatin [Nystop] 1 applic TP BID PRN #1 bottle 02/06/19 [Last Taken Unknown] Prednisone [Prednisone 20Mg] 20 mg PO DAILYWM #4 tab 02/06/19 [Last Taken Unknown] Discharge Plan - Discharge Instructions Activity at Discharge: Increase Activity as Tolerated, Resume Usual Activities As Tolerated Diet at Discharge: Advance to Usual Diet Instructions: Viral Pneumonia (DC), Using Oxygen at Home (DC), COPD (Chronic Obstructive Pulmonary Disease) (DC) Additional Instructions: Follow up with Director Metabolism Follow up with Primary Care Provider in the next 1-2 weeks, discuss possible anxiety and for blood pressure check Home Oxygen has been ordered, use 3L with exertion and when you are feeling very short of breath. Take 1 Levaquin 250mg tablet (you should have 4 at home from first admission) on 02/08/19 and 02/10/19 and then stop Take 20mg Prednisone daily starting tomorrow for 4 days. Increase levemir from 55 to 57 units q day. Take Amlodipine 5mg daily, #14 tablets prescribed. F/u with PCP. Quality Measures - Quality Measures Quality Measures: Advance Directives, Documentation of Current Medications in Medical Record, Elder Maltreatment Screen and Follow-Up Plan, Screening for High Blood Pressure and F/U Documented - Current Medications Quality Measure: Measure #130: Documentation of Current Medications Documentation of Current Medications: <Current Medications Documented/Reviewed> [G4653] - Blood Pressure Screening Quality Measure: Screening for High Blood Pressure and Follow-Up Documented Does Patient Have Any of the Following: Active Dx of HTN Blood Pressure Classification: Hypertensive Reading Systolic Measurement: 186 Diastolic Measurement: 122 Screening for High Blood Pressure: Patient Exclusion, Hx of HTN [G9744] - Advance Directives Quality Measure: Measure #47: Care Plan Advance Directives Established: No Advance Directives Information Provided To Patient: Declined Advance Directives on File: No Living Will: No Power of [place]: No Advance Care Planning: <Care Plan/Decision Maker Documented; Discussed & Documented> [1123F] - Elder Abuse Suspicion Index Screening: Elder Abuse Suspicion Index Screening Rely on people for bathing, dressing, shopping, banking, etc: No Prevented from getting food, clothes, medication, etc: No Made to feel shamed or threatened by someone: No Forced to sign papers or use money against will: No Feel afraid, touched in ways not wanted or hurt physically: No Poor eye contact, withdrawn, malnourished, cuts or bruises: No Screening Result: Negative result EASI Reference Information: Acacia ANGELES, Malia C, Darren D, Eleni Cervantes.Development and validation of a tool to assist physicians identification of elder abuse: The Elder Abuse Suspicion Index (EASI ). Journal of Elder Abuse and Neglect, 2008; 20 (3): 276-300. - Elder Maltreatment Screen Quality Measures: Elder Maltreatment Screen and Follow-Up Plan Elder Maltreatment Screen: <Negative, No Follow-Up Plan Required> [G0743]
[2019-02-06] MEDS ORDERED: NOVOLOG FLEXPEN (INSULIN ASPART) 100 UNITS/ML SQ ONE (11:35)
[2019-02-06] MEDS ORDERED: AMLODIPINE BESYLATE 5MG TAB PO SCH (12:45)
== END 2019-02-06 13:00 | disposition home health service (06) | DRG 194 ==
LOC: ER 21:52 → MEDSURG 23:11
PROVIDERS: ADMIT Internal Medicine; ATTEND Internal Medicine
DX: J18.9 Pneumonia, unspecified organism (principal); N18.4 Chronic kidney disease, stage 4 (severe); J44.9 Chronic obstructive pulmonary disease, unspecified; R09.02 Hypoxemia; R05 Cough; I10 Essential (primary) hypertension; E11.9 Type 2 diabetes mellitus without complications; Z79.4 Long term (current) use of insulin; I49.9 Cardiac arrhythmia, unspecified; G47.33 Obstructive sleep apnea (adult) (pediatric); Z87.891 Personal history of nicotine dependence; Z96.652 Presence of left artificial knee joint; Z86.73 Personal history of transient ischemic attack (TIA), and cerebral infarction without residual deficits; Z85.820 Personal history of malignant melanoma of skin; Z95.1 Presence of aortocoronary bypass graft
CPT/HCPCS: 36416; 71045; 80053; 82948; 84145; 84484; 85027; 94618; 94640; 94667; 94760; 94761; 99223; 99239; 99285; J1956; J2543; J2930; J7512; J7613

== ENCOUNTER 2019-04-09 14:36 | Emergency (ER) | payer MEDICARE ==
[2019-04-09] MEDS ORDERED: IPRATROPIUM/ALBUTEROL (0.5MG/3MG) NEB INH ONE (14:55)
--- NOTE | 2019-04-09 14:58 | Emergency Department Record ---
History of Present Illness - General Chief Complaint: Shortness of breath Stated Complaint: SALVADOR, Time Seen by Provider: 04/09/19 14:41 Source: Patient, Family (daughter) Mode of Arrival: Ambulatory Limitations: No limitations - History of Present Illness Initial Comments: Pt with one week of SALVADOR associated with cough productive of yellow sputum. No fever, no blood in cough. No CP, nausea, vomiting, AP. Pt has hx of COPD and had a low pulse ox at home today. Has home O2 used only with CPAP at night. Continues to care for herself at home alone. Smoker who quit in 2012. Recent pneumonia in January 2019. "I am not feeling sick, just having the cough and difficulty with my breathing". Onset/Timin -: Days(s) Known History Of: Congestive heart failure, COPD, Diabetes Associated Symptoms: Cough - Related Data Previous Rx's Medication Instructions Recorded Acetaminophen [Tylenol 500Mg Tab] 1,000 mg PO Q6H PRN tablet 02/03/19 Fluticasone Propionate [Flonase] 1 spray NA DAILY btl 02/03/19 Amlodipine Besylate 5 mg PO DAILY #14 tab 02/06/19 Nystatin [Nystop] 1 applic TP BID PRN #1 bottle 02/06/19 Allergies Allergy/AdvReac Type Severity Reaction Status Date / Time No Known Drug Allergies Allergy Verified 04/09/19 14:56 Travel Screening - Travel/Exposure Within Last 30 Days Have you traveled within the last 30 days?: No - Travel/Exposure Within Last Year Have you traveled outside the [place] in the last year?: No - Additonal Travel Details Have you been exposed to anyone with a communicable illness?: No - Travel Symptoms Symptom Screening: None Review of Systems Constitutional: Denies: Chills, Fever, Weakness Eyes: Denies: Eye discharge, Photophobia ENT: Reports: Congestion. Denies: Dental pain, Ear pain Respiratory: Reports: As per HPI, Cough, Dyspnea, Wheezes. Denies: Hemoptysis Cardiovascular: Denies: Chest pain, Palpitations, Syncope Endocrine: Denies: Fatigue, Polyuria Gastrointestinal: Denies: Abdominal pain, Constipation, Diarrhea, Nausea, Vomiting Musculoskeletal: Denies: Arthralgia, Back pain Skin: Denies: Bruising, Rash Neurological: Denies: Headache, Numbness, Weakness Psychiatric: Denies: Anxiety Hematological/Lymphatic: Denies: Anemia Past Medical History - SOCIAL HISTORY Smoking Status: Former smoker Alcohol Use: None Drug Use: None - RESPIRATORY Hx Respiratory Disorders: Yes Hx COPD: Yes Hx Sleep Apnea: Yes Hx of CPAP: Yes (USES CPAP AT HOME) - CARDIOVASCULAR Hx Cardio Disorders: Yes Hx Abnormal EKG: Yes Hx Irregular Heartbeat: Yes (ON AMIODARONE) - NEURO Hx Neuro Disorders: Yes Hx TIA: Yes () - GI Hx GI Disorders: No - Hx Genitourinary Disorders: No - ENDOCRINE Hx Endocrine Disorders: Yes Hx Diabetes: Yes (INSULIN DEPENDENT) Hx Thyroid Disease: No - MUSCULOSKELETAL Hx Musculoskeletal Disorders: Yes Hx Arthritis: Yes - PSYCH Hx Psych Problems: No - HEMATOLOGY/ONCOLOGY Hx Hematology/Oncology Disorders: Yes Hx Cancer: Yes (melanoma) Hx Chemotherapy: No Hx Radiation Therapy: No Family Medical History Any Significant Family History?: No Hx Heart Disease: Father Hx HTN: Father Physical Exam - General General Appearance: Alert, Oriented x3, Cooperative, No acute distress - Head Head exam: Atraumatic, Normocephalic - Eye Eye exam: Normal appearance, PERRL - ENT ENT exam: Mucous membranes moist Ear exam: Normal external inspection Nasal Exam: Normal inspection Mouth exam: Normal external inspection Throat exam: Normal inspection - Neck Neck exam: Normal inspection, Full ROM. negative: Lymphadenopathy, Meningismus, Tenderness - Respiratory Respiratory exam: Rhonchi. negative: Accessory muscle use, Chest wall tenderness, Wheezes (coarse breath sounds with good exchange. ) - Cardiovascular Cardiovascular Exam: Regular rate, Normal rhythm, Normal heart sounds. negative: Tachycardia Peripheral Pulses: 2+: Radial (R), Radial (L) - GI/Abdominal GI/Abdominal exam: Soft, Normal bowel sounds. negative: Distended, Guarding, Tenderness - Extremities Extremities exam: Full ROM. negative: Calf tenderness, Joint swelling, Te nderness (minimal dependant edema at sock line left ankle - 3 months post total knee right. Healing well. ) - Back Back exam: Reports: Normal inspection. Denies: Paraspinal tenderness - Neurological Neurological exam: Alert, Normal gait, Oriented X3. negative: Motor sensory deficit - Psychiatric Psychiatric exam: Normal affect, Normal mood - Skin Skin exam: Normal color. negative: Rash Course Vital Signs 04/09/19 14:43 Temperature 97.7 F Pulse Rate 66 Respiratory 20 Rate Blood Pressure 138/62 Pulse Ox 93 L - Reevaluation(s) Reevaluation #1: 04/09/19 15:23 seen and exam. Cough without wheeze. Hx recent pneumonia. Labs and CXR ordered. Reevaluation #2: 04/09/19 16:57 CXR per radiologist "early CHF with congestion vs nodular basilar infiltrates". Pt scheduled for outpt CT Chest for this issue. We will get CT now. Pt feeling "Improved" with improved resp. Family at bedside. Reevaluation #3: 04/09/19 17:29 CT read by radiologist with bilateral multi nodules in lower lungs "Suggestive of neoplastic process". Suggests PET CT outpt. Ot has appointment with her doctor in 3 days. See pulmonary at [facility] also. Discussed results with pt and daughter. They are aware of the "Suggestion" of cancer but NOT THE DIAGNOSIS. They are comfortable with no treatment at this time with out pt treatment. Returning here sooner if worse. Breathing much impr chanel with one neb tx in ED. Procedures - EKG Initial Date: 04/09/19 Time: 15:10 EKG: No Acute Changes EKG Detail: SR at 62 with LVH - no change from 02-01-19 Medical Decision Making - Management Options MDM Management: Additional Work-up Planned (e.g. ADM/Transfer/OP Study) - Data Complexity MDM Data: Labs Ordered and/or Reviewed, X-Ray Ordered and/or Reviewed, EKG Ordered and/or Reviewed, Decision to Obtain Old Record - Lab Data Result diagrams: 04/09/19 15:25 04/09/19 15:25 - EKG Data -: EKG Interpreted by Me - Radiology Data Radiology results: Report reviewed, Image reviewed Disposition Disposition: Discharge Clinical Impression: Cough, COPD (chronic obstructive pulmonary disease), Lung mass Condition: (2) Stable Instructions: COPD (Chronic Obstructive Pulmonary Disease) (ED) Additional Instructions: Follow up with your doctor as scheduled on . Discussed out patient CT as recommended. Continue home meds. Forms: Patient Portal Access Time of Disposition: 17:33 Quality - Quality Measures Quality Measures: N/A - Blood Pressure Screening Does Patient Have Any of the Following: No Blood Pressure Classification: Pre-Hypertensive BP Reading Systolic Measurement: 138 Diastolic Measurement: 62 Screening for High Blood Pressure: < Pre-Hypertensive BP, F/U Documented > [G8950] Pre-Hypertensive Follow-up Interventions: Follow-up with rescreen every year.
[2019-04-09 15:28] LABS: ABSOLUTE NEUTROPHIL COUNT 5.76; BASO % 0.6 % (0-6); EOS % 2.3 % (0-6); GRAN % 72.6 % (47-80); HEMOGLOBIN 10.3 gm/dl (11.6-16.0); LYMPH % 16.4 % (16-45); MEAN CELL VOLUME 83.5 fl (81-97); MEAN CORPUSCULAR HGB CONC 29.4 g/dl (32-36); MEAN PLATELET VOLUME 10.8 fl (7.4-10.4); MONO % 8.1 % (0-9); PLATELET COUNT 288 K/uL (130-400); RED BLOOD COUNT 4.19 M/uL (3.80-5.40); RED CELL DISTRIBUTION WIDTH 17.4 % (11.5-14.5); WHITE BLOOD COUNT W/O DIFF 7.9 K/uL (4.2-12.2)
[2019-04-09 15:29] LABS: MEAN CORPUSCULAR HEMOGLOBIN 24.5 pg (27-33)
[2019-04-09 15:40] LABS: CREATININE 1.5 mg/dL (0.5-0.9)
[2019-04-09 16:34] LABS: URINE APPEARANCE CLEAR; URINE BILIRUBIN NEGATIVE (NEGATIVE); URINE BLOOD NEGATIVE (NEGATIVE); URINE COLOR YELLOW; URINE GLUCOSE (UA) NEGATIVE (NEGATIVE); URINE KETONE NEGATIVE (NEGATIVE); URINE LEUKOCYTE ESTERASE NEGATIVE (NEGATIVE); URINE NITRITE NEGATIVE (NEGATIVE); URINE PROTEIN NEGATIVE (NEGATIVE); URINE UROBILINOGEN 0.2 E.U./dL (0.20 - 1.00)
--- NOTE | 2019-04-11 12:30 | RADIOLOGY REPORT ---
EXAM: CHEST, TWO VIEWS HISTORY: WORSENING SHORTNESS OF BREATH FOR THREE DAYS WITH PRODUCTIVE COUGH. EXACERBATION OF COPD. TECHNIQUE: Upright PA and lateral views of the chest were obtained. Comparison: Portable chest dated 02/03/19. FINDINGS: Post median sternotomy changes are redemonstrated. The cardiac silhouette projects enlarged. There is mild pulmonary venous hypertension. Mixed primarily reticulonodular opacities are scattered in the mid and lower lungs. The left lateral costophrenic angle now appears blunted with a small effusion possible. No definite right costophrenic angle blunting. Biapical pleural and parenchymal scarring. No pneumothorax. The lungs appear hyperinflated. There has been interval improvement in aeration of the right suprahilar lung. IMPRESSION: 1. CARDIOMEGALY WITH BORDERLINE TO MILD PULMONARY VENOUS HYPERTENSION SUGGESTED. EARLY FLUID OVERLOAD NOT EXCLUDED. 2. MIXED PRIMARILY RETICULONODULAR OPACITIES PRESENT IN THE MID AND LOWER LUNGS, RIGHT SLIGHTLY GREATER THAN LEFT. WHILE MUCH OF THIS MAY BE THE RESULT OF CHRONIC INTERSTITIAL CHANGE, EDEMA OR ATYPICAL INFILTRATE CANNOT BE EXCLUDED. 3. POSSIBLE NEW SMALL LEFT BASILAR PLEURAL EFFUSION. JOB NUMBER: [id number] AND [id number] [facility]
--- NOTE | 2019-04-11 12:44 | CT SCAN REPORT ---
EXAM: CT SCAN OF THE CHEST HISTORY: SHORTNESS OF BREATH. TECHNIQUE: Serial axial CT scan of the chest was performed at 3.75 mm intervals from the thoracic inlet to the dome of the diaphragm without the use of intravenous contrast. Comparison: Chest x-ray dated 04/09/19 is provided. FINDINGS: The thoracic inlet is unremarkable. The lung windows demonstrate emphysematous changes bilaterally. There are multiple nodular appearing densities within the bilateral lung maier. The largest of these is located within the left lower lobe and measures approximately 1.7 cm in diameter. These densities have ill defined margins with possible spiculations. Neoplastic etiology cannot be excluded. Small pleural effusions are identified. No pneumothorax is noted. There is moderate cardiomegaly. The contour and caliber of the thoracic aorta is within normal limits. Moderate to advanced calcified atherosclerotic disease is noted at the aortic arch and descending thoracic aorta. The chest wall is unremarkable. Several prominent lymph nodes are identified within the mediastinum. The largest of these measures approximately 1.6 cm in short axis diameter and is located in the precarinal space. Given their size, neoplastic etiology cannot be excluded. Axial images through the upper abdomen demonstrate the visualized liver and spleen to be unremarkable. There is a questionable 1.4 cm nodule within the left adrenal gland. If there is further clinical concern, then MRI of the adrenal glands can be obtained for further evaluation. Bone windows demonstrate no CT evidence of a fracture or dislocation of the visualized osseous structures. IMPRESSION: 1. CARDIOMEGALY IS NOTED WITH BILATERAL EMPHYSEMATOUS CHANGES. 2. MULTIPLE BILATERAL NODULAR DENSITIES ARE IDENTIFIED DISCUSSED ABOVE. GIVEN THE EMPHYSEMATOUS CHANGES, NEOPLASTIC ETIOLOGY CANNOT BE EXCLUDED. OTHER POSSIBILITIES INCLUDE NODULAR INFILTRATES FROM PNEUMONIA. IF THERE IS FURTHER CLINICAL CONCERN THEN A PET CT SCAN CAN BE OBTAINED FOR FURTHER EVALUATION. 3. QUESTIONABLE NODULAR DENSITY IS NOTED WITHIN THE LEFT ADRENAL GLAND. IF THERE IS FURTHER CLINICAL CONCERN THEN AN MRI OF THE ADRENAL GLANDS CAN BE OBTAINED FOR FURTHER EVALUATION. JOB NUMBER: [id number] MTDD
== END 2019-04-09 17:42 | disposition home or self-care (01) ==
LOC: ER 14:36
DX: R91.8 Other nonspecific abnormal finding of lung field (principal); R05 Cough; R06.02 Shortness of breath; J44.9 Chronic obstructive pulmonary disease, unspecified; I50.9 Heart failure, unspecified; E11.9 Type 2 diabetes mellitus without complications; Z87.891 Personal history of nicotine dependence
CPT/HCPCS: 71046; 71250; 80048; 81003; 85025; 93005; 93010; 94640; 99284

== ENCOUNTER 2019-04-22 14:12 | Emergency (ER) | payer MEDICARE ==
[2019-04-22] MEDS ORDERED: IPRATROPIUM/ALBUTEROL (0.5MG/3MG) NEB INH ONE (14:26)
[2019-04-22] MEDS ORDERED: METHYLPREDNISOLONE PF 125MG/VIAL IVP ONE (15:28)
[2019-04-22 15:54] LABS: ABSOLUTE NEUTROPHIL COUNT 6.28; BASO % 0.5 % (0-6); GRAN % 77.4 % (47-80); HEMATOCRIT 33.8 % (35.0-47.0); HEMOGLOBIN 9.8 gm/dl (11.6-16.0); LYMPH % 13.8 % (16-45); MEAN CELL VOLUME 84.9 fl (81-97); MEAN CORPUSCULAR HEMOGLOBIN 24.6 pg (27-33); MEAN PLATELET VOLUME 11.5 fl (7.4-10.4); MONO % 6.3 % (0-9); PLATELET COUNT 277 K/uL (130-400); RED BLOOD COUNT 3.98 M/uL (3.80-5.40); RED CELL DISTRIBUTION WIDTH 17.7 % (11.5-14.5); WHITE BLOOD COUNT W/O DIFF 8.1 K/uL (4.2-12.2)
[2019-04-22 16:40] LABS: ALB/GLOB RATIO 1.3 (1.1-1.8); ALBUMIN 3.8 g/dL (4.0-5.0); BILIRUBIN,TOTAL 0.2 mg/dL (0.2-1.0); CREATININE 1.7 mg/dL (0.5-0.9); TOTAL PROTEIN 6.8 g/dL (6.6-8.7)
[2019-04-22 16:42] LABS: NTpro B-NATRIURETIC PEPTIDE 561.4 pg/mL (<450)
--- NOTE | 2019-04-22 17:38 | Emergency Department Record ---
History of Present Illness - General Chief Complaint: Difficulty Breathing Stated Complaint: SALVADOR Time Seen by Provider: 04/22/19 15:22 Source: Patient, Family Mode of Arrival: Wheelchair Limitations: No limitations - History of Present Illness Initial Comments: pt became increasingly sob since last night. she had stayed at a relatives house that smoked and it flared up her copd. she was previously on oxygen but it has been stopped. her cough is productive english. she's had no fevers, sweats, chills. no cp. she had a ct recently that showed 'shadows' and is sheduled to have a pet scan.. she says her puffers are not working MD Complaint: Shortness of breath Onset/Timin -: Days(s) Severity: Moderate Quality: Aching, Burning Consistency: Getting worse Worsens With: Exertion Known History Of: COPD Context: Allergen exposure Associated Symptoms: Denies other symptoms - Related Data Home Oxygen Therapy: No (came home with after last admission for pneumonia.) Previous Rx's Medication Instructions Recorded Acetaminophen [Tylenol 500Mg Tab] 1,000 mg PO Q6H PRN tablet 02/03/19 Fluticasone Propionate [Flonase] 1 spray NA DAILY btl 02/03/19 Amlodipine Besylate 5 mg PO DAILY #14 tab 02/06/19 Nystatin [Nystop] 1 applic TP BID PRN #1 bottle 02/06/19 Albuterol Sulfate 0.083% [Neb] 3 ml NEB .EVERY 4-6 HOURS PRN #20 04/22/19 [Albuterol Sulfate] ml Prednisone [Prednisone 20Mg] 20 mg PO Q12HR #8 tab 04/22/19 Allergies Allergy/AdvReac Type Severity Reaction Status Date / Time No Known Drug Allergies Allergy Verified 04/22/19 14:26 Travel Screening - Travel/Exposure Within Last 30 Days Have you traveled within the last 30 days?: No - Travel/Exposure Within Last Year Have you traveled outside the [place] in the last year?: No - Additonal Travel Details Have you been exposed to anyone with a communicable illness?: No - Travel Symptoms Symptom Screening: None Review of Systems Reviewed: No additional complaints except as noted below Constitutional: Reports: As per HPI. Denies: Chills, Fever, Malaise, Night sweats, Weakness, Weight change Eyes: Reports: As per HPI. Denies: Eye discharge, Eye pain, Photophobia, Vision change ENT: Reports: As per HPI. Denies: Congestion, Dental pain, Ear pain, Epistaxis, Hearing loss, Throat pain Respiratory: Reports: As per HPI, Dyspnea. Denies: Cough, Hemoptysis, Stridor, Wheezes Cardiovascular: Reports: As per HPI, Dyspnea on exertion. Denies: Arrhythmia, Chest pain, Edema, Murmurs, Orthopnea, Palpitations, Paroxysmal nocturnal dyspnea, Rheumatic Fever, Syncope Endocrine: Reports: As per HPI. Denies: Fatigue, Heat or cold intolerance, Polydipsia, Polyuria Gastrointestinal: Reports: As per HPI. Denies: Abdominal pain, Constipation, Diarrhea, Hematemesis, Hematochezia, Melena, Nausea, Vomiting Genitourinary: Reports: As per HPI. Denies: Abnormal menses, Discharge, Dyspareunia, Dysuria, Frequency, Hematuria, Incontinence, Retention, Urgency Musculoskeletal: Reports: As per HPI. Denies: Arthralgia, Back pain, Gout, Joint swelling, Myalgia, Neck pain Skin: Reports: As per HPI. Denies: Bruising, Change in color, Change in hair/nails, Lesions, Pruritus, Rash Neurological: Reports: As per HPI. Denies: Abnormal gait, Confusion, Headache, Numbness, Paresthesias, Seizure, Tingling, Tremors, Vertigo, Weakness Psychiatric: Reports: As per HPI. Denies: Anxiety, Auditory hallucinations, Depression, Homicidal thoughts, Suicidal thoughts, Visual hallucinations Hematological/Lymphatic: Reports: As per HPI. Denies: Anemia, Blood Clots, Easy bleeding, Easy bruising, Swollen glands Past Medical History - SOCIAL HISTORY Smoking Status: Former smoker Alcohol Use: None Drug Use: None - RESPIRATORY Hx Respiratory Disorders: Yes Hx COPD: Yes Hx Pneumonia: Yes Hx Sleep Apnea: Yes Hx of CPAP: Yes (USES CPAP AT HOME) - CARDIOVASCULAR Hx Cardio Disorders: Yes Hx Abnormal EKG: Yes Hx Irregular Heartbeat: Yes (ON AMIODARONE) - NEURO Hx Neuro Disorders: Yes Hx TIA: Yes () - GI Hx GI Disorders: No - Hx Genitourinary Disorders: No - ENDOCRINE Hx Endocrine Disorders: Yes Hx Diabetes: Yes (INSULIN DEPENDENT) Hx Thyroid Disease: No - MUSCULOSKELETAL Hx Musculoskeletal Disorders: Yes Hx Arthritis: Yes - PSYCH Hx Psych Problems: No - HEMATOLOGY/ONCOLOGY Hx Hematology/Oncology Disorders: Yes Hx Cancer: Yes (melanoma) Hx Chemotherapy: No Hx Radiation Therapy: No Family Medical History Any Significant Family History?: Yes Hx Heart Disease: Father Hx HTN: Father Physical Exam - General General Appearance: Alert, Oriented x3, Cooperative, No acute distress - Head Head exam: Normal inspection - Eye Eye exam: Normal appearance, PERRL, EOMI Pupils: Normal accommodation - ENT ENT exam: Normal exam, Mucous membranes moist, Normal external ear exam, Normal orophraynx Ear exam: Normal external inspection. negative: External canal tenderness Nasal Exam: Normal inspection. negative: Discharge, Sinus tenderness Mouth exam: Normal external inspection, Tongue normal Teeth exam: Normal inspection. negative: Dental caries Throat exam: Normal inspection. negative: Tonsillar erythema, Tonsillar exudate - Neck Neck exam: Normal inspection, Full ROM. negative: Tenderness - Respiratory Respiratory exam: Normal lung sounds bilaterally, Rales (l base), Respiratory distress - Cardiovascular Cardiovascular Exam: Regular rate, Normal rhythm, Normal heart sounds, Systolic murmur - GI/Abdominal GI/Abdominal exam: Soft, Normal bowel sounds. negative: Tenderness - Rectal Rectal exam: Deferred - exam: Deferred - Extremities Extremities exam: Normal inspection, Full ROM, Normal capillary refill. negative: Tenderness - Back Back exam: Reports: Normal inspection, Full ROM. Denies: Muscle spasm, Rash noted, Tenderness - Neurological Neurological exam: Alert, CN II-XII intact, Normal gait, Oriented X3 - Psychiatric Psychiatric exam: Normal affect, Normal mood - Skin Skin exam: Dry, Intact, Normal color, Warm Course Vital Signs 04/22/19 04/22/19 04/22/19 14:13 14:28 15:21 Temperature 98.1 F Pulse Rate 76 70 Pulse Rate [ 71 Room Service Waiter ] Respiratory 20 20 19 Rate Blood Pressure 159/80 Blood Pressure 123/57 [Left Arm] Pulse Ox 88 L 99 93 L 04/22/19 04/22/19 17:02 17:28 Temperature 98.6 F Pulse Rate Pulse Rate [ 65 66 Room Service Waiter ] Respiratory 18 17 Rate Blood Pressure Blood Pressure 176/73 [Left Arm] Pulse Ox 100 93 L - Reevaluation(s) Reevaluation #1: 04/22/19 17:41 pt feels much better. murmur softer Medical Decision Making - Lab Data Result diagrams: 04/22/19 14:25 04/22/19 14:25 Lab Results 04/22/19 04/22/19 Range/Units 14:25 14:25 WBC 8.1 (4.2-12.2) K/uL RBC 3.98 (3.80-5.40) M/uL Hgb 9.8 L (11.6-16.0) gm/dl Hct 33.8 L (35.0-47.0) % MCV 84.9 (81-97) fl MCH 24.6 L (27-33) pg MCHC 29.0 L (32-36) g/dl RDW 17.7 H (11.5-14.5) % Plt Count 277 (130-400) K/uL MPV 11.5 H (7.4-10.4) fl Gran % 77.4 (47-80) % Lymphocytes % 13.8 L (16-45) % Monocytes % 6.3 (0-9) % Eosinophils % 2.0 (0-6) % Basophils % 0.5 (0-6) % Absolute Neutrophils 6.28 Sodium 138 (136-145) mmol/L Potassium 4.7 H (3.4-4.5) mmol/L Chloride 99 (98-107) mmol/L Carbon Dioxide 24.0 (22-29) mmol/L Anion Gap 15.0 (7-16) BUN 34 H (8-23) mg/dL Creatinine 1.7 H (0.5-0.9) mg/dL Estimated GFR 31 mL/min Random Glucose 292 H (74-109) mg/dL Calcium 9.1 (8.8-10.2) mg/dL Total Bilirubin 0.20 (0.2-1.0) mg/dL AST 18 (10.0-35.0) U/L ALT 23 (<33) U/L Alkaline Phosphatase 138 H (35-104) U/L NT-Pro-B Natriuret Pep 561.40 H (<450) pg/mL Total Protein 6.8 (6.6-8.7) g/dL Albumin 3.8 L (4.0-5.0) g/dL Globulin 3.0 (1.4-4.8) gm/dL Albumin/Globulin Ratio 1.3 (1.1-1.8) Disposition Disposition: Discharge Clinical Impression: Hypoxia COPD (chronic obstructive pulmonary disease) Qualifiers: COPD type: unspecified COPD Qualified Code(s): J44.9 - Chronic obstructive pulmonary disease, unspecified Disposition: Home, Self-Care Condition: (1) Good Instructions: COPD (Chronic Obstructive Pulmonary Disease) (ED) Additional Instructions: follow up with family doctor. return sooner if worse. use albuterol nebulizer every 6 hours as needed Prescriptions: Prednisone [Prednisone 20Mg] 20 mg PO Q12HR #8 tab Albuterol Sulfate 0.083% [Neb] [Albuterol Sulfate] 3 ml NEB .EVERY 4-6 HOURS PRN #20 ml PRN Reason: Difficulty In Breathing Quality - Quality Measures Quality Measures: N/A - Blood Pressure Screening Does Patient Have Any of the Following: No Blood Pressure Classification: Pre-Hypertensive BP Reading Systolic Measurement: 159 Diastolic Measurement: 80 Screening for High Blood Pressure: < Pre-Hypertensive BP, F/U Documented > [G8950] Pre-Hypertensive Follow-up Interventions: Follow-up with rescreen every year.
[2019-04-22] MEDS ORDERED: ALBUTEROL SULFATE (0.083%) 2.5 MG/3 ML NEB INH ONE (18:02)
--- NOTE | 2019-04-23 21:13 | RADIOLOGY REPORT ---
EXAM: CHEST 2 VIEWS HISTORY: SHORTNESS OF BREATH, DIFFICULTY IN BREATHING. TECHNIQUE: PA and lateral views. COMPARISON: 04/09/2019. FINDINGS: Cardiomegaly. Pulmonary venous hypertension with some diffuse interstitial prominence. Graded blunting of the right costophrenic angle, slightly less so on the left. Findings again suggest CHF. Follow-up films suggested. Post-op sternotomy as before. No pneumothorax evident. IMPRESSION: CARDIOMEGALY WITH PULMONARY VENOUS HYPERTENSION AND PROBABLY SMALL BIBASILAR EFFUSIONS. FINDINGS LIKELY REPRESENT MILD CHANGES OF CHF. FOLLOW-UP FILMS SUGGESTED. JOB NUMBER: [id number] [facility]
== END 2019-04-22 18:13 | disposition home or self-care (01) ==
LOC: ER 14:12
DX: J44.1 Chronic obstructive pulmonary disease with (acute) exacerbation (principal); R09.02 Hypoxemia; E11.9 Type 2 diabetes mellitus without complications; Z79.4 Long term (current) use of insulin; Z87.891 Personal history of nicotine dependence
CPT/HCPCS: 71046; 80053; 83880; 85025; 94640; 96374; 99284; J2930; J7613